=== PATIENT | female | born 1985 | race Caucasian/White ===

== ENCOUNTER 2021-04-21 10:42 | Outpatient (CLI) | payer BC, SELFPAY ==
[2021-04-21 11:07] LABS: Hematocrit 39.6 % (37.0-47.0); Hemoglobin 12.8 g/dL (12.0-15.0)
== END 2021-04-21 10:43 | disposition home or self-care (01) ==
PROVIDERS: Visit Provider Obstetrics & Gynecology
DX: R10.2 Pelvic and perineal pain (principal); Z01.818 Encounter for other preprocedural examination
CPT/HCPCS: 36415; 85014; 85018; 86850; 86900; 86901

== ENCOUNTER 2021-04-24 02:56 | Day surgery (SDC) | payer BC, SELFPAY ==
[2021-04-20 13:44] VITALS: BMI 35.2
--- NOTE | 2021-04-23 07:48 | PM.IMHP ---
H&P: HPI History of Present Illness Date/Time: 04/23/21 07:48 this is a 35-year-old 1 para 1 admitted for laparoscopy hysteroscopy dilatation and curettage secondary to pelvic pain and heavy bleeding. She has complained of pelvic pain discomfort dyspareunia and bleeding. Ultrasound shows thickened endometrium and a mildly enlarged uterus. There is a complex left ovarian cyst with free fluid and she has a family history of endometriosis. Risks and benefits of these procedures were reviewed in great detail. She received the [employer] handout entitled laparoscopy, hysteroscopy, dilatation and curettage respectively. Chief Complaint: pelvic pain/ left ovarian cyst/ heavy bleeding Review of Systems Review of Systems: All systems reviewed & are unremarkable except as noted in HPI and below [facility] Social History Social History Smoking packs per day: 0.5 Smoking cigarettes per day: 10.0 Years smoked: 20 Smoking pack-years: 10.00 Smoking status: Current every day smoker Alcohol use details: 1 PER MONTH Substance use: never Meds Home Medications and Allergies Home Medications Medication Instructions Recorded Confirmed Type levothyroxine 88 mcg PO DAILY 04/20/21 04/20/21 History Allergies Allergy/AdvReac Type Severity Reaction Status Date / Time clarithromycin Allergy Mild Rash Verified 04/20/21 13:43 Exam Const: General: no acute distress Eyes: General: appearance normal, both eyes and all related structures Neck: Neck: supple and no JVD Thyroid: thyroid normal Resp: Effort & Inspection: normal respiratory effort Auscultation: clear to auscultation bilaterally Cardio: Rate: regular rate Rhythm: regular rhythm GI: Inspection: non-distended GI Palp: Yes Soft to palpation, No Tenderness to palpation present (GI) and No Guarding due to palpation present (GI) Auscultation: normal bowel sounds : External Female Exam: normal external appearance Speculum Exam - Vagina: normal appearance of the vagina Speculum Exam - Cervix: normal appearance of the cervix Bimanual exam- vagina & uterus: enlarged and Uterine tenderness Bimanual Exam- Adnexa, other: tender Skin: General skin exam: no rashes or lesions noted Extrem: General: normal to inspection and no edema Psych: Mental Status: mental status grossly normal Affect: normal affect Assessment and Plan Additional Plan Impression: Pelvic pain with bleeding and left ovarian cyst Plan: Laparoscopy /hysteroscopy / dilatation curettage
[2021-04-24] VITALS (9 sets, daily range): BP systolic 109–130; BP diastolic 67–83; PULSE 62–74; RESP 14–18; TEMP 36.3–36.6; O2SAT 96–99; BMI 35.1
--- NOTE | 2021-04-24 06:36 | WPDHPUPDATE1 ---
History and Physical Update Update Date/Time: 04/24/21 06:36 History and Physical has been reviewed, including an updated exam of the patient. There are NO changes in the patient's condition. Risks, benefits, and alternatives have been discussed and questions answered. Patient agrees to proceed with procedure.
--- NOTE | 2021-04-24 12:00 | WPDANESEPPF ---
Anes - Initial Pre Proc Eval Procedure: Operation Date: 04/24/21 13:30 Proposed Procedures p Diagnostic Laparoscopy, Hysteroscopy Dilation and Curettage - Omega Barajas MD Date/Time: 04/24/21 12:00 Surgeon: Omega Barajas MD Pre Op Diagnosis: Pain/irreg excessive bleeding Patient Data Age: 35 Gender: F Height: 1.68 m Weight: 99 kg Allergies Allergy/AdvReac Type Severity Reaction Status Date / Time clarithromycin Allergy Mild Rash Verified 04/24/21 11:51 Home Medications Medication Instructions Recorded Confirmed Type levothyroxine 88 mcg PO DAILY 04/20/21 04/24/21 History hydrocodone-acetaminophen 1 tablet PO Q4H PRN #30 tablet 04/24/21 Rx Patient hx anesthesia problems: none Family hx anesthesia problems: none [facility] Past Medical History Medical History Hypothyroidism Obesity Smoker Surgical History Surgical History (Updated 04/24/21 @ 12:05 by Omega John MD) History of section Social History Social History Smoking packs per day: 0.5 Smoking cigarettes per day: 10.0 Years smoked: 20 Smoking pack-years: 10.00 Smoking status: Current every day smoker Alcohol use details: 1 PER MONTH Substance use: never Living arrangements: with family Anes - Eval Final PreProcedure Day of Procedure 04/24/21 12:00 Patient weight: obese Heart: regular rate and rhythm Lungs: clear to auscultation Airway: Mallampati scale class II Neurological: alert and oriented Last oral intake: >/= 8 hours ASA classification: II Emergent: no Anesthetic plan: proceed Anesthesia type and monitoring: general ETT and standard monitoring Informed Consent: The patient's anesthetic plan and its attendant risks and benefits were discussed with the patient/family/POA. Questions were solicited and answers provided to the satisfaction of the patient/family/POA.
[2021-04-24] MEDS: LACTATED RINGERS 1,000 ML 30 ML IV CONT ×2 (12:08→14:04)
[2021-04-24] MEDS: KETOROLAC 15 MG/ML VIAL (*BKC) IV PUSH (12:14)
[2021-04-24] MEDS: ACETAMINOPHEN 500 MG TABLET 1000 MG PO (12:14)
--- NOTE | 2021-04-24 12:21 | SUR.PREOP ---
1130; PT TEARFUL, STATES SHE IS VERY ANXIOUS
--- NOTE | 2021-04-24 13:22 | P.OP_ITS ---
Procedure Note - Detailed Date of Procedure 04/24/21 Pre-op Diagnosis Pain/irreg excessive bleeding Post-op Diagnosis other (Pelvic adhesions / endometriosis /right ovarian cyst) Procedure Performed laparoscopy/ destruction of right ovarian cyst / destruction of endometriosis / lysis of adhesions /hysteroscopy / dilatation and curettage Surgeon Omega Barajas MD Anesthesia general Indications cyst 35-year-old female with pelvic pain and excessive heavy bleeding Findings multiple adhesions were seen from the omentum to the anterior abdominal. The uterus was markedly adherent to the anterior abdominal. Large right ovarian cyst benign in nature was seen. Endometriosis on the right ovary was seen. Adhesions in the posterior cul-de-sac. On hysteroscopy the uterus sounded to 8cm. Thick irregular endometrial tissue was seen Description of Procedure the patient was prepped draped in normal sterile fashion placed in dorsal lithotomy position. Excellent endotracheal anesthesia weighted speculum placed in posterior [id number] of vagina. The anterior lip of the cervix grasped a single-tooth tenaculum and the Alberto's cannula inserted the cervix. This was attached to the single-tooth to be used later for uterine manipulation the bladder was drained of clear urine. Weighted speculum was removed and gloves were changed. An infraumbilical incision made in the Veress needle passed in the abdomen. The abdomen filled with CO2 gas [id number]. The 5mm trocar advanced under visualization assuring injury. The patient placed in Trendelenburg and a suprapubic incision made. The 5mm trocar was advanced under direct visualization assuring no injury. Multiple adhesions were seen. Using Endo Elaine cautery this was sharply dissected. The uterus was markedly adherent anterior to the abdominal wall and sharp dissection was used to loosen this. There were also adhesions posteriorly in the cul-de-sac and these were sharply dissected a moderate size right ovarian cyst was seen and this was opened in linear fashion and drained clear fluid. An area of powder burn and endometriosis was seen on the right ovary and this was cauterized at 35 w per 2nd monopolar cautery. Irrigation then undertaken until clear. The remainder of the pelvis appeared within normal limits. Irrigation was undertaken and the lower site removed. The gas removed from the abdomen and then the upper site removed. The incisions closed with 4 O Monocryl and glue. Attention was turned to the hysteroscopic portion of procedure. The uterus sounded 8cm. Serial dilatation with fragmented dilators performed passage of 5mm visualizing hysteroscope. Normal saline was used as visualizing medium. Thick irregular endometrial tissue was seen. Each fallopian tube os could be seen. No other abnormalities were seen. The uterus was scraped over the entire 360? until a good grating sound was heard. When the scraping could return more tissue the procedure was terminated the patient was awakened and went to rec overy in satisfactory condition. All sponge, needle, instrument counts were correct. There were no immediate complications Estimated Blood Loss 5 Drains No Packing No Pathology yes Complications No immediate complications Condition stable Disposition PACU
[2021-04-24] MEDS: fentaNYL CITRATE INJ (*CRX) 100 MCG/2 ML VIAL 25 MCG IV PUSH ×4 (13:46→14:00)
== END 2021-04-24 15:40 | disposition home or self-care (01) ==
PROVIDERS: Visit Provider Obstetrics & Gynecology
PROC: 0UDB8ZZ Extraction of Endometrium, Via Natural or Artificial Opening Endoscopic (ICD-10-PCS; CPT 58558; principal; 2021-04-24 13:30)
DX: R10.2 Pelvic and perineal pain (principal); N93.9 Abnormal uterine and vaginal bleeding, unspecified; N83.201 Unspecified ovarian cyst, right side; N73.6 Female pelvic peritoneal adhesions (postinfective); N80.1 Endometriosis of ovary; E03.9 Hypothyroidism, unspecified; E66.9 Obesity, unspecified; Z68.35 Body mass index [BMI] 35.0-35.9, adult; F17.210 Nicotine dependence, cigarettes, uncomplicated
CPT/HCPCS: 58662; 58558; 36415; 85014; 85018; 86850; 86900; 86901; 88305; A9270; J0330; J1100; J1885; J2250; J2405; J2704; J3010; J7030; J7120

== ENCOUNTER 2023-01-03 09:38 | Emergency (ER) | payer BC, SELFPAY ==
[2023-01-03 09:57] VITALS: BP 118/74; PULSE 84; RESP 18; TEMP 36.4; O2SAT 100
--- NOTE | 2023-01-03 10:19 | ED.GENADULT ---
HPI - General Adult General Chief complaint: Skin/Abscess/Foreign Body <Dinh Raines PA-C - Last Filed: 01/03/23 14:07> Stated complaint: abcess on Left inner thigh <JOSÉ MANUEL Pinzon Last Filed: 01/03/23 14:07> Time Seen by Provider: 01/03/23 10:10 <Dinh Raines PA-C - Last Filed: 01/03/23 14:07> Source: patient <JOSÉ MANUEL Pinzon Last Filed: 01/03/23 14:07> Mode of arrival: ambulatory <JOSÉ MANUEL Pinzon Last Filed: 01/03/23 14:07> Limitations: no limitations <JOSÉ MANUEL Pinzon Last Filed: 01/03/23 14:07> History of Present Illness HPI narrative: This is a 37-year-old female presents to the ED with chief complaint of left inner thigh infection x3 days. Patient states she was at urgent care 2 days ago and was given a prescription for Bactrim. She is returning today because the pain is worse and there is spreading erythema. She states that they did not drain the abscess. Reports the area is erythematous, swollen and hard. Denies fevers, chills, nausea, vomiting. <Dinh Raines PA-C - Last Filed: 01/03/23 14:07> Related Data Home medications: Home Medications Medication Instructions Recorded Confirmed levothyroxine 88 mcg tablet 88 mcg PO DAILY 04/20/21 04/24/21 <JOSÉ MANUEL Pinzon Last Filed: 01/03/23 14:07> Allergies/adverse reactions: Allergies Allergy/AdvReac Type Severity Reaction Status Date / Time clarithromycin Allergy Mild Rash Verified 01/03/23 10:05 <JOSÉ MANUEL Pinzon Last Filed: 01/03/23 14:07> Review of Systems Review of Systems: CONSTITUTIONAL: Denies fever, chills, or sweats. EYES: Denies visual changes, redness, or discharge. ENT: Denies rhinorrhea, congestion, sore throat, or otalgia. CARDIOVASCULAR: Denies chest pain, palpitations, or edema. RESPIRATORY: Denies cough or dyspnea. GASTROINTESTINAL: Denies abdominal pain, nausea, vomiting, or diarrhea. GENITOURINARY: Denies dysuria or hematuria. SKIN: See HPI MUSCULOSKELETAL: Denies back pain, joint pain, or myalgia. NEUROLOGIC: Denies headache, numbness, dizziness, or weakness. PSYCHIATRIC: Denies anxiety or depression. <Dinh Raines PA-C - Last Filed: 01/03/23 14:07> [facility] Past Medical History Medical History: Medical History Hypothyroidism Obesity Smoker <Dinh Raines PA-C - Last Filed: 01/03/23 14:07> Surgical History Surgical History: Surgical History (Updated 04/24/21 @ 12:05 by Omega John MD) History of section <Dinh Raines PA-C - Last Filed: 01/03/23 14:07> Social History Social History: Social History Smoking packs per day: 0.5 Smoking cigarettes per day: 10.0 Years smoked: 20 Smoking pack-years: 10.00 Smoking status: Current every day smoker Alcohol use details: 1 PER MONTH Substance use: never Living arrangements: with family <Dinh Rianes PA-C - Last Filed: 01/03/23 14:07> Exam Narrative: GENERAL: Well-appearing, well-nourished, and in no acute distress. HEAD: Normocephalic, atraumatic. EYES: PERRLA and EOMI. ENT: Nares clear, no rhinorrhea or epistaxis. Mucous membranes moist. Oropharynx without tonsillar hypertrophy exudate or other lesions. NECK: Supple. No adenopathy or masses. CHEST: No respiratory distress. Clear to auscultation. No wheezes rales or rhonchi HEART: Regular rate and rhythm. No murmur heard. Normal peripheral pulses. ABDOMEN: Soft, nontender, nondistended, normal active bowel sounds. EXTREMITIES: Normal range of motion. No edema. SKIN: There is a 4 x 6 cm area of induration to the left proximal anterolateral medial thigh. No erythema surrounds the lesion throughout the upper half of the anterior thigh. The area is very tender over the induration. NEURO: Alert and oriented x3. No focal deficits. PSYCH: Normal mood and affect. <Dinh Raines PA-C - Last Filed: 01/03/23 14:07> Course [employer]CH[employer]IC/DARLEEN Owen
[2023-01-03 10:47] LABS: Basophils Absolute Auto 0.1 K/mm3 (0.0-0.1); Basophils Percent Auto 0.4 % (0.2-1.2); Eosinophils Absolute Auto 0.2 K/mm3 (0-0.3); Eosinophils Percent Auto 1.8 % (0-4.4); Hemoglobin 11.2 g/dL (12.0-15.0); Immature Granulocyte Absolute 0.07 K/mm3 (0.00-0.031); Immature Granulocyte Percent A 0.6 % (0-0.5); Lymphocytes Absolute Auto 2.96 K/mm3 (0.9-3.2); Lymphocytes Percent Auto 23.8 % (18.3-44.2); Mean Corpuscular HGB Conc 31.1 g/dl (32-36); Mean Corpuscular Volume 73.9 fl (80-100); Mean Platelet Volume 9.5 fl (7.4-10.4); Monocytes Absolute Auto 1.1 K/mm3 (0.1-0.6); Neutrophils Percent Auto 64.4 % (45.5-73.1); Platelet Count Result 276 k/mm3 (150-375); Red Blood Count 4.87 M/mm3 (4.2-5.4); Red Cell Distribution Width 17.4 % (11.5-14.5); White Blood Count 12.4 K/mm3 (4.5-10.0)
[2023-01-03 11:03] LABS: Alanine Aminotransferase 26 U/L (6-35); Albumin Level 4.5 g/dL (3.5-5.1); Alkaline Phosphatase 98 U/L (38-126); Anion Gap 6 mmol/L (8-16); Aspartate Amino Transferase 25 U/L (14-36); Blood Urea Nitrogen 8 mg/dL (7-17); Calcium 9.5 mg/dL (8.4-10.2); Carbon Dioxide 24 mmol/L (22-30); Chloride 107 mmol/L (98-107); Estimated CRCL calculation 88 ml/min; Estimated Glomerular Filt Rate > 60; Glucose 83 mg/dL (65-110); Potassium 4.6 mmol/L (3.4-5.0); Sodium 137 mmol/L (137-145)
[2023-01-03 11:30] LABS: CRP 5.1 mg/dL (<1.0)
[2023-01-03 12:03] VITALS: BP 116/71; PULSE 73; RESP 16; O2SAT 99
== END 2023-01-03 12:06 | disposition home or self-care (01) ==
PROVIDERS: Emergency Provider Physician Assistant
DX: L02.416 Cutaneous abscess of left lower limb (principal); E03.9 Hypothyroidism, unspecified; E66.9 Obesity, unspecified; Z68.34 Body mass index [BMI] 34.0-34.9, adult; F17.210 Nicotine dependence, cigarettes, uncomplicated
CPT/HCPCS: 10060; 36415; 80053; 85025; 86140; 99283

== ENCOUNTER 2023-01-05 09:47 | Emergency (ER) | payer BC, SELFPAY ==
--- NOTE | ~2023-01-05 | US_ITS ---
Duplex Sonography of the left extremity: Indication: Swelling Findings: Sagittal and transverse B-mode images as well as color-flow imaging were performed on the l eft femoral and popliteal veins. B-mode examination was done without and with compression in the tra nsverse plane. There is good visualization of the common femoral, proximal profunda femoral, superfi cial femoral, greater saphenous, and popliteal veins. Normal flow was seen on color-flow imaging. No rmal compressibility was demonstrated. Visualized left calf veins are also patent. Impression: No evidence of deep vein thrombosis involving the left lower extremity. Reviewed, dictated and finalized at location M. Impression: No evidence of deep vein thrombosis involving the left lower extremity.
[2023-01-05 09:48] VITALS: BP 127/73; PULSE 80; RESP 12; TEMP 36.2; O2SAT 100
[2023-01-05 10:51] LABS: Basophils Percent Auto 0.4 % (0.2-1.2); Eosinophils Absolute Auto 0.3 K/mm3 (0-0.3); Eosinophils Percent Auto 3.3 % (0-4.4); Hemoglobin 10.4 g/dL (12.0-15.0); Immature Granulocyte Absolute 0.05 K/mm3 (0.00-0.031); Immature Granulocyte Percent A 0.7 % (0-0.5); Lymphocytes Absolute Auto 2.61 K/mm3 (0.9-3.2); Mean Corpuscular HGB Conc 30.6 g/dl (32-36); Mean Corpuscular Hemoglobin 23.6 pg (26-34); Mean Corpuscular Volume 77.1 fl (80-100); Mean Platelet Volume 9.2 fl (7.4-10.4); Monocytes Absolute Auto 0.6 K/mm3 (0.1-0.6); Monocytes Percent Auto 7.4 % (2.6-8.5); Neutrophils Absolute Auto 4.2 K/mm3 (1.3-6.7); Neutrophils Percent Auto 54.2 % (45.5-73.1); Platelet Count Result 279 k/mm3 (150-375); Red Blood Count 4.41 M/mm3 (4.2-5.4); Red Cell Distribution Width 17.4 % (11.5-14.5); White Blood Count 7.7 K/mm3 (4.5-10.0)
[2023-01-05 11:06] LABS: Anion Gap 7 mmol/L (8-16); Blood Urea Nitrogen 10 mg/dL (7-17); Calcium 8.8 mg/dL (8.4-10.2); Carbon Dioxide 23 mmol/L (22-30); Chloride 108 mmol/L (98-107); Estimated CRCL calculation 114 ml/min; Estimated Glomerular Filt Rate > 60; Glucose 104 mg/dL (65-110); Potassium 4.3 mmol/L (3.4-5.0); Sodium 138 mmol/L (137-145)
--- NOTE | 2023-01-05 11:11 | PC.NURSE ---
Report received from Benita PORTER including history and physical and plan of care
--- NOTE | 2023-01-05 13:09 | ED.SKABFB ---
HPI - Skin/Abscess/Foreign Bdy General Chief complaint: Skin/Abscess/Foreign Body Stated complaint: absess left leg Time Seen by Provider: 01/05/23 10:22 History of Present Illness HPI narrative: Patient is a 37-year-old female who presents ER with infection to the left leg. Was seen here 2 days ago and had I&D. Patient was then prescribed clindamycin. She reports that the redness has decreased and her pain is decreased. She is able to ambulate better than she used to previously. She reports she feels like her leg is a bit more swollen however which has her concerned. The wound still continues to drain. No fevers or chills or sweats. No chest pain or shortness of breath. Related Data Home Medications Medication Instructions Recorded Confirmed levothyroxine 88 mcg tablet 88 mcg PO DAILY 04/20/21 04/24/21 Allergies Allergy/AdvReac Type Severity Reaction Status Date / Time clarithromycin Allergy Mild Rash Verified 01/05/23 10:37 Review of Systems Review of Systems: All systems reviewed & are unremarkable except as noted in HPI and below Constitutional: Constitutional: Denies chills, Denies fatigue and Denies fever(s) Cardiovascular: Cardiovascular: Denies chest pain, Denies rapid heart rate and Denies radiating jaw, neck or arm pain Gastrointestinal: Gastrointestinal: Denies abdominal pain, Denies nausea and Denies vomiting Integumentary/Breasts: Skin/Breast: Reports erythema and Denies skin ulcer Comments: Abscess PMFSH Past Medical History Medical History Hypothyroidism Obesity Smoker Surgical History Surgical History (Updated 04/24/21 @ 12:05 by Omega John MD) History of section Social History Social History Smoking packs per day: 0.5 Smoking cigarettes per day: 10.0 Years smoked: 20 Smoking pack-years: 10.00 Smoking status: Current every day smoker Alcohol use details: 1 PER MONTH Substance use: never Living arrangements: with family Exam Narrative: GENERAL: Well-appearing, well-nourished, and in no acute distress. HEAD: Normocephalic, atraumatic. CHEST: Clear to auscultation. No respiratory distress. HEART: Regular rate and rhythm. Normal peripheral pulses. EXTREMITIES: Normal range of motion. No edema. SKIN: Warm, dry. Draining abscess left proximal thigh. There is surrounding induration related to cellulitis. Leg has a outline from where the previous erythema had extended. Discoloration does extend slightly beyond this demarcation however it is no longer intensely red like her previous cell phone photos. NEURO: Alert and oriented x3. PSYCH: Normal mood and affect. Course Course Emergency Course: Patient had her abscessed area reopened with some mild purulence evacuated. Ultrasound without DVT. Suspect patient's cellulitis and abscess are healing appropriately as she has decreased erythema and is ambulating better. Vital Signs Vital signs: Vital Signs Temperature 97.2 F L 01/05/23 09:48 Pulse Rate 80 01/05/23 09:48 Respiratory Rate 12 01/05/23 09:48 Blood Pressure 127/73 01/05/23 09:48 Pulse Oximetry 100 01/05/23 09:48 Oxygen Delivery Room Air 01/05/23 09:48 Temperature 97.2 F L 01/05/23 09:48 Pulse Rate 80 01/05/23 09:48 Respiratory Rate 12 01/05/23 09:48 Blood Pressure 127/73 01/05/23 09:48 Pulse Oximetry 100 01/05/23 09:48 Oxygen Delivery Room Air 01/05/23 09:48 Procedures Abscess I/D thigh: Date of Incision: 01/05/23 Side (if applicable): left Local Anesthetic: lidocaine 2% and with epi Amount of anesthesia used (mL): 3 Technique: incised with #11 blade Packing used?: none I&D Results: Pus and Blood MDM - Skin/Abscess/Foreign Bdy Lab Data 01/05/23 10:45 01/05/23 10:45 Labs: Lab Results 01/05/23 01/05/23 Range/Units 10:45 10:45 WBC 7.7 (4.5-
== END 2023-01-05 13:36 | disposition home or self-care (01) ==
PROVIDERS: Emergency Provider Emergency Medicine
DX: L02.416 Cutaneous abscess of left lower limb (principal); E03.9 Hypothyroidism, unspecified; E66.9 Obesity, unspecified; Z68.37 Body mass index [BMI] 37.0-37.9, adult; F17.210 Nicotine dependence, cigarettes, uncomplicated
CPT/HCPCS: 10060; 36415; 80048; 85025; 93971; 99283; 99284

== ENCOUNTER 2023-04-09 13:09 | Emergency (ER) | payer BC, SELFPAY ==
[2023-04-09 13:10] VITALS: BP 121/68; PULSE 80; RESP 18; TEMP 36.6; O2SAT 100
[2023-04-09] MEDS: LIDO 2%/EPINEPHRINE 1:100,000 20 ML VIAL (13:58)
--- NOTE | 2023-04-09 14:06 | ED.GENADULT ---
HPI - General Adult General Chief complaint: Skin/Abscess/Foreign Body Stated complaint: abscess to lower abdomen/pubic symphysis Time Seen by Provider: 04/09/23 13:17 History of Present Illness HPI narrative: 37-year-old female present to the emergency department for evaluation for abdominal wall abscess. Patient has history of at bedtime and has been on Bactrim and clinda multiple times. Patient has not had follow-up with dermatology. Related Data Home Medications Medication Instructions Recorded Confirmed levothyroxine 88 mcg tablet 88 mcg PO DAILY 04/20/21 04/24/21 Allergies Allergy/AdvReac Type Severity Reaction Status Date / Time clarithromycin Allergy Mild Rash Verified 04/09/23 13:10 Review of Systems Review of Systems: All systems reviewed & are unremarkable except as noted in HPI and below PMFSH Past Medical History Medical History Hypothyroidism Obesity Smoker Surgical History Surgical History (Updated 04/24/21 @ 12:05 by Omega John MD) History of section Social History Social History Smoking packs per day: 0.5 Smoking cigarettes per day: 10.0 Years smoked: 20 Smoking pack-years: 10.00 Smoking status: Current every day smoker Alcohol use details: 1 PER MONTH Substance use: never Living arrangements: with family Exam Narrative: APPEARANCE: Well appearing, no pain, no distress, well-nourished. HEAD: normocephalic, atraumatic. EYES: PERRLA/EOMI, conjunctivae clear. NOSE: Normal no drainage EARS:TMS clear with good light reflex. THROAT: Pharynx clear, no exudate. NECK: Supple. No adenopathy, no masses. RESPIRATORY: Airway patent, respirations nonlabored. Clear to auscultation bilaterally, no rales, rhonchi, wheezing. CARDIOVASCULAR: Regular rate and rhythm without murmurs rubs or gallops. ABDOMINAL: Soft, nontender, nondistended, normal bowel sounds MUSCULOSKELETAL: Moves all extremities. Strength/ROM intact, No edema, No calf tenderness. NEURO: Alert. Cranial nerves II through XII intact. Good gait. Good coordination SKIN: Midline abdominal tenderness. Bedside ultrasound did confirm an abscess and this was anesthetized and drained as described in the procedure note. PSYCHIATRIC: Normal affect/mood. Course Course Emergency Course: 37-year-old female presented ED for evaluation of abdominal wall abscess. This was anesthetized and drained as detailed in the procedure note. Patient did feel improved with treatment. Wound culture was ordered. Patient was started on Bactrim. Patient was provided follow-up with dermatology. All questions and concerns were addressed and patient was comfortable to plan for discharge and close follow-up. Vital Signs Vital signs: Vital Signs Temperature 97.8 F 04/09/23 13:10 Pulse Rate 80 04/09/23 13:10 Respiratory Rate 18 04/09/23 13:10 Blood Pressure 121/68 04/09/23 13:10 Pulse Oximetry 100 04/09/23 13:10 Oxygen Delivery Room Air 04/09/23 13:10 Temperature 97.8 F 04/09/23 13:10 Pulse Rate 80 04/09/23 13:10 Respiratory Rate 18 04/09/23 13:10 Blood Pressure 121/68 04/09/23 13:10 Pulse Oximetry 100 04/09/23 13:10 Oxygen Delivery Room Air 04/09/23 13:10 Procedures Abscess I/D abdomen: Date of Incision: 04/09/23 Time of Incision: 14:08 Side (if applicable): right (Midline) Local Anesthetic: lidocaine 1% and with epi Amount of anesthesia used (mL): 3 Technique: incised with #11 blade and probed loculations Amount of fluid expressed (mL): 10 Irrigation: Yes Packing used?: iodoform I&D Results: Pus and Blood Abcess I&D Additional Comments: Patient felt improved after abscess I&D. Medical Decision Making Vital Signs Vital Signs: Vital Signs Temperature 97.8 F 04/09/23 13:10 Pulse Rate 80 04/09/23 13:10 Respiratory Rate 18 04/09/23
[2023-04-09] MEDS: SULFAMETHOXAZOLE/TRIMETHOPRIM 800/160 MG DS TABLET 1 TAB PO (14:11)
== END 2023-04-09 14:29 | disposition home or self-care (01) ==
PROVIDERS: Emergency Provider Emergency Medicine
DX: L02.211 Cutaneous abscess of abdominal wall (principal); E03.9 Hypothyroidism, unspecified; E66.9 Obesity, unspecified; Z68.33 Body mass index [BMI] 33.0-33.9, adult; F17.210 Nicotine dependence, cigarettes, uncomplicated
CPT/HCPCS: 10061; 87070; 87205; 99283; A9270

== ENCOUNTER 2023-04-24 09:25 | Emergency (ER) | payer BC, SELFPAY ==
[2023-04-24 09:27] VITALS: BP 138/86; PULSE 75; RESP 18; TEMP 36.1; O2SAT 100
--- NOTE | 2023-04-24 09:53 | ED.GENADULT ---
HPI - General Adult General Chief complaint: Skin/Abscess/Foreign Body <JOSÉ MANUEL Pinzon Last Filed: 04/24/23 13:32> Stated complaint: abcess <JOSÉ MANUEL Pinzon Last Filed: 04/24/23 13:32> Time Seen by Provider: 04/24/23 09:39 <JOSÉ MANUEL Pinzon Last Filed: 04/24/23 13:32> Source: patient <JOSÉ MANUEL Pinzon Last Filed: 04/24/23 13:32> Mode of arrival: ambulatory <JOSÉ MANUEL Pinzon Last Filed: 04/24/23 13:32> Limitations: no limitations <JOSÉ MANUEL Pinzon Last Filed: 04/24/23 13:32> History of Present Illness HPI narrative: This is a 37-year-old female who presents to the ED with chief complaint of suprapubic skin lesion beginning several weeks ago and worse today. Patient states that she has been seen for this a couple of times in the past few weeks and had the area drained. She states that she has had abscesses in this region near her past scar. She states she has a history of hidradenitis suppurativa and feels that this is the same. She reports that she was put on Bactrim during her last visit and took all 7 days which seem to help. Denies fevers, chills, nausea, vomiting. Per chart review: I saw this patient in December 2022 and treated cellulitis and abscess of the left inner thigh. It was drained at that time. She also improved greatly with clindamycin. <JOSÉ MANUEL Pinzon Last Filed: 04/24/23 13:32> Related Data Home medications: Home Medications Medication Instructions Recorded Confirmed levothyroxine 88 mcg tablet 88 mcg PO DAILY 04/20/21 04/24/21 <JOSÉ MANUEL Pinzon Last Filed: 04/24/23 13:32> Allergies/adverse reactions: Allergies Allergy/AdvReac Type Severity Reaction Status Date / Time clarithromycin Allergy Mild Rash Verified 04/24/23 09:32 <JOSÉ MANUEL Pinzon Last Filed: 04/24/23 13:32> Review of Systems Review of Systems: All systems as dictated in HPI <Dinh Raines PA-C - Last Filed: 04/24/23 13:32> PMFSH Past Medical History Medical History: Medical History Hypothyroidism Obesity Smoker <JOSÉ MANUEL Pinzon Last Filed: 04/24/23 13:32> Surgical History Surgical History: Surgical History (Updated 04/24/21 @ 12:05 by Omega John MD) History of section <JOSÉ MANUEL Pinzon Last Filed: 04/24/23 13:32> Social History Social History: Social History Smoking packs per day: 0.5 Smoking cigarettes per day: 10.0 Years smoked: 20 Smoking pack-years: 10.00 Smoking status: Current every day smoker Alcohol use details: 1 PER MONTH Substance use: never Living arrangements: with family <JOSÉ MANUEL Pinzon Last Filed: 04/24/23 13:32> Exam Narrative: GENERAL: Well-appearing, well-nourished, and in no acute distress. HEAD: Normocephalic, atraumatic. EYES: PERRLA and EOMI. ENT: Nares clear, no rhinorrhea or epistaxis. Mucous membranes moist. Oropharynx without tonsillar hypertrophy exudate or other lesions. NECK: Supple. No adenopathy or masses. CHEST: No respiratory distress. Clear to auscultation. No wheezes rales or rhonchi HEART: Regular rate and rhythm. No murmur heard. Normal peripheral pulses. ABDOMEN: Soft, nontender, nondistended, normal active bowel sounds. MSK: Normal range of motion. No edema. SKIN: There is swelling and erythema to the suprapubic region. Several scattered lesions. No purulence or drainage. Mild induration with no fluctuance. Warm, dry, no rash. NEURO: Alert and oriented x3. No focal deficits. PSYCH: Normal mood and affect. <JOSÉ MANUEL Pinzon Last Filed: 04/24/23 13:32> Course VEHICLE GLASS TECHNICIAN/PA Physician Supervision For this patient encounter, I reviewed the VEHICLE GLASS TECHNICIAN or PA documentation, treatment plan, and I was responsible for the medical decision making; and I had [id number] time with this patient. <Hernandez Montez MD - Last Filed:
[2023-04-24 10:57] VITALS: BP 136/85; PULSE 88; RESP 15; O2SAT 99
== END 2023-04-24 10:58 | disposition home or self-care (01) ==
PROVIDERS: Emergency Provider Physician Assistant
DX: L02.211 Cutaneous abscess of abdominal wall (principal); E03.9 Hypothyroidism, unspecified; E66.9 Obesity, unspecified; Z68.32 Body mass index [BMI] 32.0-32.9, adult; F17.210 Nicotine dependence, cigarettes, uncomplicated
CPT/HCPCS: 10061; 81025; 99283

== ENCOUNTER 2024-04-30 16:34 | Emergency (ER) | payer BC, SELFPAY ==
--- NOTE | ~2024-04-30 | US_ITS ---
EXAMINATION: US pelvic complete DATE: 04/30/2024 19:33 INDICATION: abdominal pain, hx PCOS TECHNIQUE: Multiple transabdominal and endovaginal sonographic images of the pelvis were obtained. COMPARISON: None. FINDINGS: Uterus: 9.8 x 5.2 x 5.4 cm. Endometrial complex measures 8 mm. Right Ovary: 3.5 x 2.4 x 2.2 cm. The right ovary is midline, posterior to the uterus. Vascular flow i s not definitively identified. Left Ovary: 3.6 x 3.0 x 2.3 cm. Vascular flow is present. There is no free fluid in the pelvis. IMPRESSION: Midline, posterior right ovary without definite identification of vascular flow. This may be due to t orsion or suboptimal flow visualization due to ovarian position. Ovarian edema/enlargement not identi fied, which would classically be associated with acute torsion. Reviewed, dictated and finalized at [facility]. IMPRESSION: Midline, posterior right ovary without definite identification of vascular flow . This may be due to torsion or suboptimal flow visualization due to ovarian po sition. Ovarian edema/enlargement not identified, which would classically be as sociated with acute torsion.
--- NOTE | ~2024-04-30 | CT_ITS ---
EXAMINATION: CT abdomen pelvis w con DATE: 04/30/2024 20:55 INDICATION: abdominal pain TECHNIQUE: Computed tomography (CT) of the abdomen and pelvis was performed with 100 mL Omnipaque-350 intravenous contrast. Automated exposure control and iterative reconstruction technique were employe d. The dose-length product was 1298.23 mGy-cm. COMPARISON: Ultrasound pelvis, same date; CT abdomen pelvis 06/26/2018. FINDINGS: Lower thorax: Unremarkable Liver: Normal. Biliary/Gallbladder: Cholelithiasis, without inflammatory change. No bile duct dilation. Pancreas: No mass or duct dilation. Spleen: Normal. Adrenals:No mass. Kidneys: No suspicious mass, obstructing stone, or hydronephrosis. GI tract: No small or large bowel dilation. Normal appendix. Mesentery/Peritoneum: No ascites, mass, or free air. Retroperitoneum: No mass. Pelvis: Pelvic organs are within normal limits. Soft Tissues: Soft tissues and body wall unremarkable. Bones: No acute osseous finding. Bilateral L5 pars defects. IMPRESSION: No acute abdominopelvic process detected. Reviewed, dictated and finalized at location K.
[2024-04-30 16:59] VITALS: BP 121/78; PULSE 81; RESP 15; TEMP 36.5; O2SAT 99
--- NOTE | 2024-04-30 18:44 | ED.ABDPAIN ---
HPI - Abdominal Pain General Chief Complaint: Abdominal Pain <Elaina Murphy APRN - Last Filed: 05/02/24 17:05> Stated Complaint: abdominal pain <Elaina Murphy APRN - Last Filed: 05/02/24 17:05> Time Seen by Provider: 04/30/24 18:44 <Elaina Murphy APRN - Last Filed: 05/02/24 17:05> Focused HPI: Pt is a 38-year-old female who presents to the ER with abdominal pain. She endorses heartburn and nausea. Pt reports she has a history of endometriosis. She denies vomiting. Pt reports the pain came on suddenly. No one else in pt's family has been sick. Pt took ibuprofen, which helped relieve the pain temporarily. Her pain is mostly in her RLQ but it radiates to her umbilicus. GENERAL: Well-appearing, well-nourished, and in no acute distress. HEAD: Normocephalic, atraumatic. CHEST: Clear to auscultation. ?No respiratory distress. HEART: Regular rate and rhythm.? NEURO: ?Alert and oriented x3. Patient screened in triage and initial orders placed.? ?Additional care and disposition to be based upon?diagnostic testing and treatment. <Elaina Murphy APRN - Last Filed: 05/02/24 17:05> Source: patient <Elaina Murphy APRN - Last Filed: 05/02/24 17:05> Mode of arrival: ambulatory <Elaina Murphy APRN - Last Filed: 05/02/24 17:05> Limitations: no limitations <Elaina Murphy APRN - Last Filed: 05/02/24 17:05> Related Data Home Medications: Home Medications Medication Instructions Recorded Confirmed levothyroxine 88 mcg tablet 88 mcg PO DAILY 04/20/21 04/24/21 <Elaina Murphy APRN - Last Filed: 05/02/24 17:05> Allergies/Adverse Reactions: Allergies Allergy/AdvReac Type Severity Reaction Status Date / Time clarithromycin Allergy Mild Rash Verified 04/24/23 09:32 <Elaina Murphy APRN - Last Filed: 05/02/24 17:05> Review of Systems Review of Systems: All systems reviewed & are unremarkable except as noted in HPI and below <Salud Cruz MD - Last Filed: 05/11/24 18:25> [facility] Past Medical History Medical History: Medical History Hypothyroidism Obesity Smoker <Elaina Murphy APRN - Last Filed: 05/02/24 17:05> Surgical History Surgical History: Surgical History (Updated 04/24/21 @ 12:05 by Omega John MD) History of section <Elaina Murphy APRN - Last Filed: 05/02/24 17:05> Social History Social History: Social History Smoking packs per day: 0.5 Smoking cigarettes per day: 10.0 Years smoked: 20 Smoking pack-years: 10.00 Smoking status: Current every day smoker Alcohol use details: 1 PER MONTH Substance use: never Living arrangements: with family <Elaina Murphy APRN - Last Filed: 05/02/24 17:05> Exam Narrative: Physical exam: General: smiling, resting comfortably, in no acute distress CV: RRR Pulm: NLR Abd: Soft, no tenderness to palpation <Salud Cruz MD - Last Filed: 05/11/24 18:25> Course Vital Signs Vital signs: Vital Signs Temperature 97.7 F 04/30/24 16:59 Pulse Rate 81 04/30/24 16:59 Respiratory Rate 15 04/30/24 16:59 Blood Pressure 121/78 04/30/24 16:59 Pulse Oximetry 99 04/30/24 16:59 Oxygen Delivery Room Air 04/30/24 16:59 Temperature 97.7 F 04/30/24 16:59 Pulse Rate 76 04/30/24 20:45 Respiratory Rate 18 04/30/24 20:45 Blood Pressure 115/89 04/30/24 20:45 Pulse Oximetry 100 04/30/24 20:45 Oxygen Delivery Room Air 04/30/24 16:59 <Elaina Murphy APRN - Last Filed: 05/02/24 17:05> Vital Signs Temperature 97.7 F 04/30/24 16:59 Pulse Rate 81 04/30/24 16:59 Respiratory Rate 15 04/30/24 16:59 Blood Pressure 121/78 04/30/24 16:59 Pulse Oximetry 99 04/30/24 16:59 Oxygen Delivery Room Air 04/30/24 16:59 Temperature 97.7 F 04/30/24 16:59 Pulse Rate 76 04/30/24 20:45 Respiratory Ra
[2024-04-30] MEDS: HYDROcodone/acetaminophen (*CRX) 5-325 MG TABLET 1 TAB PO (19:36)
[2024-04-30 19:44] LABS: BEDSIDEPREGUCG Negative
[2024-04-30 19:51] LABS: Basophils Absolute Auto 0.1 K/mm3 (0.0-0.1); Basophils Percent Auto 0.5 % (0.2-1.2); Eosinophils Absolute Auto 0.2 K/mm3 (0-0.3); Eosinophils Percent Auto 1.9 % (0-4.4); Hematocrit 35.2 % (37.0-47.0); Hemoglobin 10.8 g/dL (12.0-15.0); Immature Granulocyte Absolute 0.04 K/mm3 (0.00-0.031); Immature Granulocyte Percent A 0.4 % (0-0.5); Lymphocytes Absolute Auto 3.52 K/mm3 (0.9-3.2); Lymphocytes Percent Auto 36.8 % (18.3-44.2); Mean Corpuscular HGB Conc 30.7 g/dl (32-36); Mean Corpuscular Volume 71.8 fl (80-100); Mean Platelet Volume 8.9 fl (7.4-10.4); Monocytes Absolute Auto 0.7 K/mm3 (0.1-0.6); Monocytes Percent Auto 7.4 % (2.6-8.5); Neutrophils Absolute Auto 5.1 K/mm3 (1.3-6.7); Platelet Count Result 307 k/mm3 (150-375); Red Cell Distribution Width 18.6 % (11.5-14.5); White Blood Count 9.6 K/mm3 (4.5-10.0)
[2024-04-30 20:04] LABS: Alanine Aminotransferase 37 U/L (6-35); Albumin Level 4.5 g/dL (3.5-5.1); Alkaline Phosphatase 88 U/L (38-126); Anion Gap 9 mmol/L (4-12); Aspartate Amino Transferase 42 U/L (14-36); Bilirubin,Total 0.9 mg/dL (0.2-1.3); Blood Urea Nitrogen 7 mg/dL (7-17); Calcium 8.9 mg/dL (8.4-10.2); Carbon Dioxide 25 mmol/L (22-30); Chloride 104 mmol/L (98-107); Estimated CRCL calculation 89 ml/min; Estimated Glomerular Filt Rate > 60; Glucose 84 mg/dL (65-110); Lipase 77 U/L (23-300); Potassium 4.1 mmol/L (3.4-5.0); Sodium 138 mmol/L (137-145)
[2024-04-30 20:11] LABS: Add Urine Microscopic? NO; Appearance Urine Clear (Clear); Bilirubin Urine Negative (Negative); Blood Urine Negative (Negative); Color Urine Yellow (Yellow); Glucose Urine UA Negative (Negative); Ketones Urine Negative (Negative); Leukocyte Esterase Ur Negative LEU/UL (Negative); Nitrate Urine Negative (Negative); Protein Urine Negative (Negative); Specific Grav Ur 1.017 (1.001-1.035); Urobilinogen Urine 0.2 mg/dL (<2.0); pH Urine 5.5 (5.0-9.0)
[2024-04-30 20:25] LABS: Platelet Estimate Adequate (Adequate)
[2024-04-30 20:26] LABS: Anisocytosis 2+; Microcytosis 1+ (NORMAL); Schistocytes None Seen
[2024-04-30 20:27] LABS: Hypochromasia 1+
[2024-04-30 20:45] VITALS: BP 115/89; PULSE 76; RESP 18; O2SAT 100
[2024-04-30] MEDS: ONDANSETRON INJ 4 MG/2 ML VIAL IV PUSH (22:03)
[2024-04-30] MEDS: FAMOTIDINE 20 MG/2 ML VIAL IV PUSH (22:03)
== END 2024-04-30 22:08 | disposition home or self-care (01) ==
PROVIDERS: Registered Nurse; Emergency Provider Emergency Medicine
DX: R10.31 Right lower quadrant pain (principal); R10.33 Periumbilical pain; R11.2 Nausea with vomiting, unspecified; N80.9 Endometriosis, unspecified; E03.9 Hypothyroidism, unspecified; E66.9 Obesity, unspecified; Z68.34 Body mass index [BMI] 34.0-34.9, adult; F17.210 Nicotine dependence, cigarettes, uncomplicated; R93.89 Abnormal findings on diagnostic imaging of other specified body structures
CPT/HCPCS: 36415; 74177; 76856; 80053; 81003; 81025; 83690; 85025; 96374; 96375; 99284; A9270; J2405; Q9967

== ENCOUNTER 2025-07-19 08:07 | Emergency (ER) | payer BC, SELFPAY ==
--- NOTE | ~2025-07-19 | US_ITS ---
EXAMINATION: US pelvic complete w TV INDICATION: RLQ abdominal/right pelvic pain. Polycystic ovarian syndrome. TECHNIQUE: Multiple transabdominal and transvaginal sonographic images of the pelvis were obtained. COMPARISON: 2023 FINDINGS: Uterus: The uterus appears normal in size, shape, and position.. The endometrium appears normal, with a thickness of 11 mm. There is minimal fluid in the endometrial cavity. Right Ovary: There is a 2.6 cm simple cyst in the right ovary. Vascular flow is present. There is a tubular fluid-filled structure in the right adnexa which may represent hydrosalpinx/pyosalpinx in the appropriate clinical setting. Left Ovary: The left ovary appears normal.. Vascular flow is present. IMPRESSION: Tubular fluid-filled structure in the right adnexa may represent hydrosalpinx or hydrosalpinx. There is a right ovarian cyst without evidence of ovarian torsion. Reviewed, dictated and finalized at location A. IMPRESSION: Tubular fluid-filled structure in the right adnexa may represent hydrosalpinx o r hydrosalpinx. There is a right ovarian cyst without evidence of ovarian torsi on.
--- OUTSIDE RECORDS SUMMARY | 2025-07-19 08:15 | XMS_ITS | Clinical Summary ---
Author Organization [facility] Address [address] [place] [id number] Care Team Providers Care Sandwich Machine Operator Name Role Phone Unavailable Primary Care Provider Unavailabl e Social History Tobacco Use Types Packs/Day Years Used Date Smoking Tobacco: Never Assessed Comments Unknown Sex and Gender Information Value Date Recorded Sex Assigned at Not on file Legal Sex Female 2:23 PM CDT Gender Identity Not on file Sexual Orientation Not on file Plan of Treatment Health Maintenance Due Date Last Done Comments Cervical Cancer Screening Pa p Smear (Age 30 to 64) Every 3 Years 1984 Annual Physical 1987 Hepatitis C 2002 DTaP, Tdap and Td Vaccines ( 1 - Tdap) 2003 Hepatitis B Vaccines (1 of 3 - 19+ 3-dose series) 2003 HPV Vaccines (1 - 3-dose SCD M series) 2011 Cervical Cancer Screening Pa p with HPV Testing (Age 30 to 64) Every 5 Years 2014 Cervical Cancer Screening with HPV 2014 Mammogram Screening 2024 COVID-19 Vaccine (2024-2 6 season) 2025 Influenza Adult (#1) 2025 Hepatitis A Vaccines Aged Out No long er eligible based on patient's age to complete this topic Meningococcal B Vaccine Aged Out No l onger eligible based on patient's age to complete this topic Meningococcal Vaccine Aged Out No mando pepe eligible based on patient's age to complete this topic Pneumococcal Vaccine: Pediat rics (0 to 5 Years) and At-Risk Patients (6 to 49 Years) Aged Out No longer eligible b ased on patient's age to complete this topic RSV Immunizations Under 20 Months Aged Out No longer eligible based on patient's age to complete this topic
--- OUTSIDE RECORDS SUMMARY | 2025-07-19 08:15 | XMS_ITS | Clinical Summary ---
Author Organization [facility] Address [address] [place] [address] Care Team Providers Care Candy Feeder Name Role Phone No, Physician Primary Care Provider [phone] Allergies Active Allergy Reactions Criticality Noted Date Comments Cephalexin Other (See comments) Reaction: OTHER REACTION, , Reaction: anxiety attacks, Clarithromycin Other (See comments) Reaction: face, body turned red, , Medications levothyroxine (SYNTHROID, LEVOTHROID) 175 mcg tablet take 1 tablet by oral route every day 90 3 5 Active albuterol HFA (PROVENTIL HFA,VENTOLIN HFA) 90 mcg/actuation inhaler inhale 2 puff by inhalation route every 4 - 6 hours as needed 1 Inhaler 0 6 Active Additional Information Patient not taking.Reported on 07/19/2022 ondansetron (ZOFRAN) 4 mg tabletIndicatio ns:NAUSEA Take 1 tablet (4 mg total) by mouth every 4 (four) hours as needed for nausea or vomiting. 15 tablet 8 Active Additional Information Patient not taking.Reported on 07/19/2022 azithromycin (Zithromax Z-Antoine) 250 mg tablet Take 1 tablet (250 mg total) by mouth daily Take first 2 tablets together, then 1 every day until finished. 6 tablet 2 Active Additional Information Patient not taking.Reported on 07/19/2022 Active Problems Problem Noted Date Diagnosed Date Asymptomatic gallstones 07/02/2018 Overview (07/02/2018): Found on CT abdomen June 2018 Adiposity 02/02/2014 Overview (12/22/2016): Obesity (BMI 30-39.9) Polycystic ovaries 02/02/2014 Overview (12/23/2016): PCOS (polycystic ovarian syndrome) Acquired hypothyroidism 02/02/2014 Overview (12/24/2016): ACQUIRED HYPOTHYROID NEC Emotional stress reaction 02/02/2014 Overview (12/24/2016): STRESS REACT, EMOTIONAL Disease of thyroid gland 02/21/2013 Multinodular goiter 12/18/2012 Overview (12/23/2016): Multiple thyroid nodules Immunizations Immunization Administration Dates Next Due Tdap 10/21/2009 Surgical History Surgery Date Site/Laterality Comments OTHER SURGICAL HISTORY Anxiety: Celexa OTHER SURGICAL HISTORY Hypothyroidism, primary: levothyroxine OTHER SURGICAL HISTORY 2009 JOE II-III of cervix: LEEP OTHER SURGICAL HISTORY 1988 Tonsillitis, ear infections: T&A, ear tubes OTHER SURGICAL HISTORY 2004 : induced OTHER SURGICAL HISTORY 2014 : 29 hr labor IR FINE NEEDLE ASPIRATION W IMAGE GUIDANCE 05/16/2015 N/A Medical History Medical History Date Comments Anxiety disorder Anxiety Hx Other Medical Hypothyroidism, primary Hx Other Medical Asthma as a chi ld Hx Other Medical PCOS (hirsutism , insulin resistance, heavy menses Hx Other Medical 2009 JOE II-III of c ervix; Outcome: normal paps since Hx Other Medical Goiter Hx Other Medical 1988 Tonsillitis, ea r infections Hx Other Medical 2004 Hx Other Medical 2014 ; Comm ents: GBS (+). Elective IOL with Cervidil and Pitocin. Attempted vacuum assistance not successful for arrest of descent; primary LTCS done.; Outcome: [id number] week 8lb(s) 15 oz Male Family History Medical History Relation Name Comments Hypertension Father Hypertension; Osteoporosis Maternal Grandmother Osteopo rosis; Diabetes Paternal Grandfather Diabete s; Relation Name Status Comments Father Maternal Grandmother Paternal Grandfather Social History Tobacco Use Types Packs/Day Years Used Date Smoking Tobacco: Heavy Smoker Smokeless Tobacco: Never Comments:Smoking History Pac ks/day: 1 Packs Alcohol Use Standard Drinks/Week Comments Yes 0 (1 standard drink = 0.6 oz pur e alcohol) Comments No Sex and Gender Information Value Date Recorded Sex Assigned at Not on file Legal Sex Female 1:30 PM PAINT STOCKMAN Gender Identity Not on file Sexual Orientation Not on file Obstetrics History Last Filed Vital Signs Vital Sign Reading Time Taken Comments Blood Pressure 118/70 07/19/2022 6:55 PM CDT Pulse 95 07/19/2022 6:55 PM CDT Temperature 36.6 C (97.9 F) 07/19/2022 6:55 PM CDT Respiratory Rate 16 07/19/2022 6:55 PM CDT Oxygen Saturation 98% 07/19/2022 6:55 PM CDT Inhaled Oxygen Concentration - - Weight 104.3 kg (230 lb) 07/19/2022 6:55 PM CDT Height 170.2 cm (5' 7) 07/19/2022 6:55 PM CDT Body Mass Index 36.02 07/19/2022 6:55 PM CDT Plan of Treatment Health Maintenance Due Date Last Done Comments Breast Cancer Screening-Mammogram 1984 Cervical Cancer Screening 1984 Depression Screening 1984 Varicella Vaccines (1 of 2 - 13+ 2-dose series) 1997 Hepatitis B Screening 2002 Regular Well Visit/Exam 18-64 2002 Pneumococcal vaccine <65 (1 of 2 - PCV) 2003 HPV Vaccines (1 - 3-dose SCD M series) 2011 DTaP/Tdap/Td Vaccine (6 - Td or Tdap) 10/21/2019 10/21/2009, 03/13/1990, 04/24/1986, Additional history exists Covid-19 Vaccine (2 - 2024-2 6 season) 2025 12/25/2020 Influenza Vaccine (#1) 2025 Hepatitis C Screening Completed 08/22/2014 Procedures Procedure Name Priority Date/Time Associated Diagnosis Comments SERUM HEPATITIS C AB Routine 08/22/2014 6:30 AM PAINT STOCKMAN from Last 3 Months or Most Recently Relevant to Health Maintenance Results * Serum Hepatitis C ab (08/22/2014 6:30 AM PAINT STOCKMAN) HCV ab Negative Negative HISTORICAL RESULTS Serum 08/22/2014 6:30 AM PAINT STOCKMAN Narrative HISTORICAL RESULTS - 08/22/2014 4:40 PM PAINT STOCKMAN #[id number] [facility] DOA, Varicella IgG, and Obstetric Panel Latonya Ocasio MD LAB BLOOD ORDERABLE S Final Result HISTORICAL RESULTS from Last 3 Months or Most Recently Relevant to Health Maintenance Insurance [employer] ACCESS [employer] Care Teams Candy Feeder Relationship Specialty Start Date End Date No, Physician PCP - General 5/14/22
--- OUTSIDE RECORDS SUMMARY | 2025-07-19 08:15 | XMS_ITS | Encounter Summary ---
Author Organization [facility] Address [address] [place] [address] Phone Care Team Providers Care Infection Control Practitioner Name Role Phone Annabelle Robin APRN, LASHA Primary Care P jerome Reason for Visit * Reason Comments Medication Refill Encounter Details Date Type Department Care Team (Late st Contact Info) Description 11/24/2023 Refill [facility] - Primary Care - [place] [address] [place] [address] Dayday Gifford, [place] [address] [place] [address] Medication Refill Social History Tobacco Use Types Packs/Day Years Used Date Smoking Tobacco: Every Day Cigarettes 0.5 15 Smokeless Tobacco: Never Alcohol Use Standard Drinks/Week Comments Yes 0 (1 standard drink = 0.6 oz pur e alcohol) OCCASIONALLY PHQ-2 Answer Date Recorded Total Score - Questions 1-9 0 02/18 Education Answer Date Recorded What is the highest level of school you have completed or the highest degree you have received? Associate degree: academic program 03/01/2023 Sexually Active Control Partners Comments Yes Male Comments No Sex and Gender Information Value Date Recorded Sex Assigned at Not on file Legal Sex Female 10:17 PM CDT Gender Identity Not on file Sexual Orientation Not on file documented as of this encounter Miscellaneous Notes * Telephone Encounter - Emily Tellez RN - 11/24/2023 10:08 AM CST Medication failed the protocol, provider to review and approve the medication order if appropriate. Requested Prescriptions Pending Prescriptions Disp Refills levothyroxine (SYNTHROID) 112 MCG Tablet [Pharmacy Med Name: Levothyroxine Sodium 112 MCG Oral Tablet] 90 Tablet 0 Sig: Take 1 tablet by mouth once daily Thyroid Hormones Protocol Failed - 11/24/2023 10:05 AM Failed - Normal TSH in past 12 months TSH Date Value Ref Range Status 05/25/2023 18.520 (H) 0.300 - 5.000 mIU/L Final Passed - No test in the past 12 months or most recent test was negative Passed - Visit with relevant provider in past 12 months or upcoming 90 days Recent Visits Date Type Provider Dept 03/08/23 Office Visit Annabelle Robin APRN, SUPERVISOR [employer] [facility] Showing recent visits within past 365 days and meeting all other requirements Future Appointments No visits were found meeting these conditions. 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 documented in this encounter Additional Health Concerns Infection Onset Date Last Indicated Resolved Time Respiratory Rule-Out 11/26/2023 11/26/2023 024 10:03 AM UNIT EDUCATOR COVID - 19 11/26/2023 11/26/2023 11/26/2023 10:0 2 AM UNIT EDUCATOR Influenza 11/26/2023 11/26/2023 12/03/2023 12:1 6 AM CDT Assessment Noted Time PHQ-9 Depression Total Score: 0 03/16/20 21 7:00 AM CDT documented as of this encounter Care Teams Infection Control Practitioner Relationship Specialty Start Date End Date Annabelle Robin APRN, SUPER[employer] [address] [place] [address] PCP - General Advanced Practice Nurse 04/28/23 documented as of this encounter
--- OUTSIDE RECORDS SUMMARY | 2025-07-19 08:15 | XMS_ITS | Encounter Summary ---
Author Organization [facility] Address [address] [place] [address] Phone Care Team Providers Care Public Address Announcer Name Role Phone Annabelle Robin APRN, CNP Primary Care P rovider Reason for Visit * Reason Comments Medication Refill Encounter Details Date Type Department Care Team (Late st Contact Info) Description 02/18/2024 Refill [facility] - Primary Care - [place] [address] [place] [phone] Annabelle Robin APRN, CNP [address] [place] [address] Medication Refill Social History Tobacco Use Types [...] encounter Miscellaneous Notes * Telephone Encounter - Annabelle Robin APRN, CNP - 02/22/2024 11:09 AM CDT Refilled. * Telephone Encounter - Emily Tellez RN - 02/22/2024 9:28 AM CDT Medication failed the protocol, provider to review and approve the medication order if appropriate. Requested Prescriptions Pending Prescriptions Disp Refills levothyroxine (SYNTHROID) 112 MCG Tablet [Pharmacy Med Name: Levothyroxine Sodium 112 MCG Oral Tablet] 90 Tablet 0 Sig: Take 1 tablet by mouth once daily Thyroid Hormones Protocol Failed - 02/18/2024 9:31 AM Failed - Normal TSH in past [...] Dept 03/08/23 Office Visit Annabelle Robin APRN, CNP [facility] Showing recent visits within past 365 days and meeting all other requirements Future Appointments No visits were found meeting these conditions. Showing future appointments within next 90 days and meeting all other requirements Passed - No active on record * Telephone Encounter - Emily Tellez RN - 02/22/2024 9:28 AM CDT 3rd attempt to call pt, no answer, LVM for pt to call back. * Telephone Encounter - Curtis Mojica RN - 02/21/2024 8:11 AM CDT Attempted to contact [facility] for yearly appt. No answer, left message. * Telephone Encounter - Curtis Mojica RN - 02/20/2024 9:07 AM CDT Attempted to contact [facility] for yearly appt. No answer, left message. 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
--- OUTSIDE RECORDS SUMMARY | 2025-07-19 08:15 | XMS_ITS | Encounter Summary ---
Author Organization [facility] Address [address] [place] [address] Phone Care Team Providers Care Institution Director Name Role Phone Flo Rios Primary Care Provider U cruz Provider, None Primary Care Provider Annabelle Stearns APRN, ESCORT CAR DRIVER Primary Care P jerome Reason for Visit * Reason Comments Medication Refill Encounter Details Date Type Department Care Team (Late st Contact Info) Description 04/09/2021 Refill [facility] - Primary Care - [id number] [place] [address] Flo Rios PAC Medication Refill Social History Tobacco Use Types Packs/Day Years Used Date Smoking Tobacco: Every Day Cigarettes 0.5 15 Smokeless Tobacco: Never PHQ-2 Answer Date Recorded Total Score - Questions 1-9 0 02/18 Comments No Sex and Gender Information Value Date Recorded Sex Assigned at Not on file Legal Sex Female 10:17 PM CDT Gender Identity Not on file Sexual Orientation Not on file COVID-19 Exposure Response Date Recorded In the last month, have you been in contact with someone who was confirmed or suspected to have Coronavirus / COVID-19? No / Unsure 03/16/2021 7:25 AM CDT documented as of this encounter Miscellaneous Notes * Telephone Encounter - Fol Rios PAC - 04/09/2021 11:25 AM CDT Rx refill approved. * Telephone Encounter - Emily Tellez RN - 04/09/2021 10:54 AM CDT Medication failed the protocol, provider to review and approve the medication order if appropriate. Requested Prescriptions Pending Prescriptions Disp Refills citalopram (CeleXA) 10 MG Tablet [Pharmacy Med Name: CITALOPRAM HBR 10 MG TABLET] 30 Tablet 0 Sig: TAKE 1 TABLET BY MOUTH EVERY DAY Citalopram (Celexa) (6 Month Refill Only) Protocol Failed - 04/09/2021 10:54 AM Failed - Patient has established therapy with Citalopram for at least 6 months Passed - No test in the past 12 months or most recent test was negative Passed - No active on record Passed - Citalopram dose is less than or equal to 40mg / day Passed - Visit with relevant provider in past 6 months or upcoming 90 days Recent Visits Date Type Provider Dept 03/16/21 Office Visit Flo Rios PAC Last 2 Left Showing recent visits within past 182 days and meeting all other requirements Future Appointments Date Type Provider Dept 04/15/21 Appointment Flo Rios PAC [facility] 05/19/21 Appointment Maximino Liu [facility] Showing future appointments within next 90 days and meeting all other requirements Passed - Has an encounter in the past 6 months with a depression, anxiety, adjustment disorder, OCD, or PTSD visit diagnosis levothyroxine (SYNTHROID) 88 MCG Tablet [Pharmacy Med Name: LEVOTHYROXINE 88 MCG TABLET] 30 Tablet 2 Sig: TAKE 1 TABLET BY MOUTH EVERY DAY Thyroid Hormones Protocol Failed - 04/09/2021 10:54 AM Failed - Normal TSH in past 12 months TSH Date Value Ref Range Status 03/16/2021 22.070 (H) 0.270 - 4.200 mIU/L Final Passed - No test in the past 12 months or most recent test was negative Passed - Visit with relevant provider in past 12 months or upcoming 90 days Recent Visits Date Type Provider Dept 03/16/21 Office Visit Flo Rios PAC Last 2 Left Showing recent visits within past 365 days and meeting all other requirements Future Appointments Date Type Provider Dept 04/15/21 Appointment Flo Rios PAC [facility] 05/19/21 Appointment Maximino Liu [facility] Showing future appointments within next 90 days and meeting all other requirements Passed - No active on record documented in this encounter Plan of Treatment Not on file documented as of this encounter Visit Diagnoses Diagnosis Anxiety Anxiety state, unspecified Hypothyroidism, unspecified type documented in this encounter Additional Health Concerns Infection Onset Date Last Indicated Resolved Time COVID - 19 11/23/2021 11/23/2021 12/13/2021 12:1 6 AM CDT Respiratory Rule-Out 10/27/2023 10/27/2023 024 6:28 PM BOBBIN HANDLER Respiratory Rule-Out 11/26/2023 11/26/2023 024 10:03 AM BOBBIN HANDLER COVID - 19 11/26/2023 11/26/2023 11/26/2023 10:0 2 AM BOBBIN HANDLER Influenza 11/26/2023 11/26/2023 12/03/2023 12:1 6 AM CDT Assessment Noted Time PHQ-9 Depression Total Score: 0 03/16/20 7:00 AM CDT documented as of this encounter Care Teams Institution Director Relationship Specialty Start Date End Date Flo Rios PAC PCP - General Physician Retail Assistant 03/16/21 06/30/22 Provider, None [place] PCP - General 07/01/22 04/27/23 Annabelle Robin, FRONT DESK HOST, ESCORT CAR DRIVER [address] [place] [address] PCP - General Advanced Practice Nurse 04/28/23 documented as of this encounter
--- OUTSIDE RECORDS SUMMARY | 2025-07-19 08:15 | XMS_ITS | Encounter Summary ---
Author Organization [facility] Address [address] [place] [address] Phone Care Team Providers Care Water Control Supervisor Name Role Phone Flo Rios Primary Care Provider U cruz Provider, None Primary Care Provider Annabelle Stearns APRN, BATCHING OPERATOR Primary Care P rovider Reason for Visit * Reason Comments Medication Refill Encounter Details Date Type Department Care Team (Late st Contact Info) Description 08/19/2021 Refill [facility] - Primary Care - [place] [address] [place] [address] Flo Rios, GIANCARLO Medication Refill Social History Tobacco Use Types [...] have Coronavirus / COVID-19? No / Unsure 08/03/2021 7:40 AM REDEVELOPMENT SPECIALIST documented as of this encounter Miscellaneous Notes * Telephone Encounter - Emily Tellez RN - 08/19/2021 12:13 PM CST The original prescription was discontinued on 08/03/2021 by Sandie Toledo RN for the following reason: Dose adjustment VELOPMENT SPECIALIST documented in this encounter Plan of Treatment Not on file documented as of this encounter Visit Diagnoses Diagnosis Hypothyroidism, unspecified type documented in this encounter Additional Health Concerns Infection Onset Date Last Indicated Resolved Time COVID - 19 11/23/2021 11/23/2021 12/13/2021 12:1 6 AM CDT Respiratory Rule-Out 10/27/2023 10/27/2023 024 6:28 PM REDEVELOPMENT SPECIALIST Respiratory Rule-Out 11/26/2023 11/26/2023 024 10:03 AM REDEVELOPMENT SPECIALIST COVID - 19 11/26/2023 11/26/2023 11/26/2023 10:0 2 AM REDEVELOPMENT SPECIALIST Influenza 11/26/2023 11/26/2023 12/03/2023 12:1 6 AM CDT Assessment Noted Time PHQ-9 Depression Total Score: 0 03/16/20 7:00 AM CDT documented as of this encounter Care Teams Water Control Supervisor Relationship Specialty Start Date End Date Flo Rios PAC PCP - General Physician Fire Production Operator 03/16/21 06/30/22 Provider, None [place] PCP - General 07/01/22 04/27/23 Annabelle Robin APRN, BATCHING OPERATOR [address] [place] [address] PCP - General Advanced Practice Nurse 04/28/23 documented as of this encounter
--- OUTSIDE RECORDS SUMMARY | 2025-07-19 08:15 | XMS_ITS | Clinical Summary ---
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 90 Tablet 3 07/12/2024 Active Active Problems Problem Noted Date Diagnosed Date Acquired hypothyroidism 02/02/2014 Overview (03/08/2023): ACQUIRED HYPOTHYROID NEC Polycystic ovaries 02/02/2014 Overview (03/08/2023): PCOS (polycystic ovarian syndrome) Multinodular goiter 12/18/2012 Overview (03/08/2023): Multiple thyroid nodules Immunizations Immunization Administration Dates Next Due Covid-19 Vaccine, Vector-nr, Rs-ad26, Pf, 0.5 Ml (AKILA/J&J) 12/25/2020 DTP Vaccine 03/13/1990, 6,03/26/1985,1984,1984 MMR Vaccine 01/10/1992,01/07/1986 OPV 03/13/1990, 6,03/26/1985,1984,1984 TDAP Vaccine 10/21/2009 Family History Medical History Relation Name Comments Hypertension Father No Known Problems Mother Diabetes Paternal Grandfather Relation Name Status Comments Father Alive Mother Alive Paternal Grandfather Social History Tobacco Use Types Packs/Day Years Used Date Smoking Tobacco: Every Day Cigarettes 0.5 15 Smokeless Tobacco: Never Tobacco Cessation:Ready to Q uit: No; Counseling Given: No Alcohol Use Standard Drinks/Week Comments Yes 0 (1 standard drink = 0.6 oz pur e alcohol) OCCASIONALLY [employer] Utilities Answer Date Recorded In the past 12 months has th e electric, gas, oil, or water company threatened to shut off services in your home? No 07/12/2024 Social Connection and Isolation Panel Answer Date Recorded In a typical week, how many times do you talk on the phone with family, friends, or neighbors? More than three times a week 07/12/2024 How often do you get togethe r with friends or relatives? Once a week 07/12/2024 How often do you attend [facility] ch or episcopalian services? Never 07/12/2024 Do you belong to any clubs o r organizations such as anglican groups, unions, fraternal or athletic groups, or school groups? No 07/12/2024 How often do you attend meet ings of the clubs or organizations you belong to? Never 07/12/2024 Are you , , di vorced, , never , or living with a partner? 07/12/2024 AUDIT-C Answer Date Recorded Q1: How often do you have a drink containing alc ohol? Monthly or less 07/12/2024 Q2: How many drinks containi ng alcohol do you have on a typical day when you are drinking? 3 or 4 07/12/2024 Q3: How often do you have si x or more drinks on one occasion? Never 07/12/2024 Overall Financial Resource Strain (CARDIA) Answe r Date Recorded How hard is it for you to pa y for the very basics like food, housing, medical care, and heating? Not hard at all 07/12/2024 PHQ-2 Answer Date Recorded Total Score - Questions 1-9 0 06/20 [facility] [place] of Occupat ional Health - Occupational Stress Questionnaire Answer Date Recorded Do you feel stress - tense, restless, nervous, or anxious, or unable to sleep at night because your mind is troubled all the time - these days? To some extent 07/12/2024 Exercise Vital Sign Answer Date Recorde d On average, how many days pe r week do you engage in moderate to strenuous exercise (like a brisk walk)? 1 day 07/12/2024 On average, how many minutes do you engage in exercise at this level? 30 min 07/12/2024 Hunger Vital Sign Answer Date Recorded Within the past 12 months, y ou worried that your food would run out before you got the money to buy more. Never true 07/12/20 24 Within the past 12 months, t he food you bought just didn't last and you didn't have money to get more. Never true 07/12/2024 PRAPARE - Transportation Answer Date Re corded In the past 12 months, has l ack of transportation kept you from medical appointments or from getting medications? No 06/20 In the past 12 months, has l ack of transportation kept you from meetings, work, or from getting things needed for daily living? No 07/12/2024 Housing Stability Vital Sign Answer Cesar e Recorded In the last 12 months, was t here a time when you were not able to pay the mortgage or rent on time? No 07/12/2024 In the past 12 months, how m any times have you moved where you were living? 0 07/12/2024 At any time in the past 12 m [facility], were you homeless or living in a [facility] (including now)? No 07/12/2024 Education Answer Date Recorded What is the [...] on file Sexual Orientation Not on file Last Filed Vital Signs Vital Sign Reading Time Taken Comments Blood Pressure 118/74 01/24/2025 9:44 AM CDT Pulse 81 01/24/2025 9:44 AM CDT Temperature 36.6 C (97.8 F) 01/24/2025 9:44 AM CDT Respiratory Rate 18 01/24/2025 9:44 AM CDT Oxygen Saturation 98% 01/24/2025 9:44 AM CDT Inhaled Oxygen Concentration - - Weight 99.8 kg (220 lb) 07/12/2024 8:44 AM CDT Height 167.6 cm (5' 6) 07/12/2024 8:44 AM CDT Body Mass Index 35.51 07/12/2024 8:44 AM CDT Plan of Treatment Health Maintenance Due Date Last Done Comments Mammogram 1984 Human Papillomavirus (HPV) Immunization (1 - 3-dose SCDM series) 2011 DTaP/Tdap/Td Immunization (6 - Td or Tdap) 10/21/2019 10/21/2009, 03/13/1990, 04/24/1986, Additional history exists Td Immunization Every 10 Years (Adults With 1 Tdap) 10/21/2019 10/21/2009 Discussion re Starting/Frequency of Mammograms 2024 Influenza Immunization (#1) 2025 SARS-COV-2 Immunization (2 - season) 2025 12/25/2020 Cervical Cancer Screening (CCS) 03/16/2026 HPV/Cotest 03/16/2026 03/16/2021 Pap Smear 03/16/2026 03/16/2021, 03/16/2021 Pneumococcal Immunization Combined (1 of 2 - PCV) 07/12/2050 Postponed from 2003 (Patient Temporarily Declines) Respiratory Syncytial Virus (RSV) Immunization (Adult) (1 - 1-dose 75+ series) 2059 Hepatitis C Virus (HCV) Screening Completed 03/16/2021 Hepatitis B Immunization Discontinued Meningococcal Immunization (ACWY) Aged Out No longer eligible based on patient's age to complete this topic Rotavirus Immunization Aged Out No lo nger eligible based on patient's age to complete this topic Procedures Procedure Name Priority Date/Time Associated Diagnosis Comments HEPATITIS C ANTIBODY Routine 03/16/2021 8:38 AM CDT Preventative health care (Adult) HUMAN PAPILLOMA VIRUS (HPV) 03/16/2021 12:00 AM CDT PATHOLOGY CYTOLOGY VP CONSTRUCTION 03/16/2021 12:00 AM CDT from Last 3 Months or Most Recently Relevant to Health Maintenance Results * HEPATITIS C ANTIBODY (03/16/2021 8:38 AM CDT) hepatitis C antibody 0.19 <1 S/CO [facility] ARCH [id number] 03/16/2021 9:41 PM CDT [facility] Comment: Signal/Cutoff ratio < 0.79 is Nondetected Signal/Cutoff ratio 0.80-0.99 is Grayzone Signal/Cutoff ratio > 0.99 is Detected Supplemental assays are recommended if signal/cutoff ratio is >/=1.00. Signal/cutoff ratio result >/= 5.00 is 97% predictive of positivity for recombinant immunoblot assay (RIBA) and will be reported to the [place] Department of Public Health as required. Blood Venipuncture / Unknown 03/16/2021 8:38 AM CDT 03/16/2021 8:38 AM CDT Flo Rios PAC CHEMISTRY ORDERABLES Fin al Result [facility] [address] [place] [address], [place] * PATHOLOGY CYTOLOGY VP CONSTRUCTION (03/16/2021 12:00 AM CDT) 03/16/2021 us Provider Scan PATHOLOGY/CYTOLOGY ORDERABLES Fi nal Result SCAN * HUMAN PAPILLOMA VIRUS (HPV) (03/16/2021 12:00 AM CDT) 03/16/2021 us Provider Scan LAB SEND OUTS Final Result SCAN from Last 3 Months or Most Recently Relevant to Health Maintenance Insurance [facility] Care Teams Salesperson Recreational Vehicles Relationship Specialty Start Date End Date Annabelle Robin APRN, PRINTING PLATE SETTER [address] [place] [address] PCP - General Advanced Practice Nurse 04/28/23
--- OUTSIDE RECORDS SUMMARY | 2025-07-19 08:16 | XMS_ITS | Encounter Summary ---
Author Organization [facility] Address [address] [place] [address] Phone Care Team Providers Care Tele Tech Name Role Phone Flo Rios Primary Care Provider U cruz Provider, None Primary Care Provider Annabelle Stearns APRN, SIDEROGRAPHER Primary Care P jerome Reason for Visit * Reason Comments Medication Refill Encounter Details Date Type Department Care Team (Late st Contact Info) Description 05/11/2021 [facility] [place] [address] [place] [address] Flo Rios PAC Medication Refill [...] have Coronavirus / COVID-19? No / Unsure 04/15/2021 7:38 AM CDT documented as of this encounter Miscellaneous Notes * Telephone Encounter - Flo Rios PAC - 05/11/2021 12:46 PM CDT Medication was discontinued at last OV. Refill refused. * Telephone Encounter - Flo Rios PAC - 05/11/2021 12:45 PM CDT Rx refill approved for levothyroxine. * Telephone Encounter - Emily Tellez RN - 05/11/2021 11:39 AM CDT Medication failed the protocol, provider to review and approve the medication order if appropriate. Requested Prescriptions Pending Prescriptions Disp Refills levothyroxine (SYNTHROID) 88 MCG Tablet [Pharmacy Med Name: LEVOTHYROXINE 88 MCG TABLET] 30 Tablet 0 Sig: TAKE 1 TABLET BY MOUTH EVERY DAY Thyroid Hormones Protocol Failed - 05/11/2021 11:39 AM Failed - Normal TSH in past 12 months TSH Date Value Ref Range Status 03/16/2021 22.070 (H) 0.270 - 4.200 mIU/L Final Passed - No test in the past 12 months or most recent test was negative Passed - Visit with relevant provider in past 12 months or upcoming 90 days Recent Visits Date Type Provider Dept 04/15/21 Office Visit Flo Rios PAC [facility] 03/16/21 Office Visit Flo Rios PAC [facility] Showing recent visits within past 365 days and meeting all other requirements Future Appointments Date Type Provider Dept 05/19/21 Appointment Lab[facility] 07/20/21 Appointment Flo Rios PAC [facility] Showing future appointments within next 90 days and meeting all other requirements Passed - No active on record citalopram (CeleXA) 10 MG Tablet [Pharmacy Med Name: CITALOPRAM HBR 10 MG TABLET] 30 Tablet 0 Sig: TAKE 1 TABLET BY MOUTH EVERY DAY Citalopram (Celexa) (6 Month Refill Only) Protocol Failed - 05/11/2021 11:39 AM Failed - Active on medication list Failed - Patient has established therapy with [...] days Recent Visits Date Type Provider Dept 04/15/21 Office Visit Flo Rios PAC [facility] 03/16/21 Office Visit Flo Rios PAC [facility] Showing recent visits within past 182 days and meeting all other requirements Future Appointments Date Type Provider Dept 05/19/21 Appointment [facility] 07/20/21 Appointment Flo Rios PAC [facility] future appointments within next 90 days and meeting all other requirements Passed - Has an encounter in the past 6 months with a depression, anxiety, adjustment disorder, OCD, or PTSD visit diagnosis documented in this encounter Plan of Treatment Not on file documented as of this encounter Visit Diagnoses Diagnosis Hypothyroidism, unspecified type Anxiety Anxiety state, unspecified documented in this encounter Additional Health Concerns Infection Onset Date Last Indicated Resolved Time COVID - 19 11/23/2021 11/23/2021 12/13/2021 12:1 6 AM CDT Respiratory Rule-Out 10/27/2023 10/27/2023 024 6:28 PM BOAT DIESEL MOTOR MECHANIC Respiratory Rule-Out 11/26/2023 11/26/2023 024 10:03 AM BOAT DIESEL MOTOR MECHANIC COVID - 19 11/26/2023 11/26/2023 11/26/2023 10:0 2 AM BOAT DIESEL MOTOR MECHANIC Influenza 11/26/2023 11/26/2023 12/03/2023 12:1 6 AM CDT Assessment Noted Time PHQ-9 Depression Total Score: 0 03/16/20 7:00 AM CDT documented as of this encounter Care Teams Tele Tech Relationship Specialty Start Date End Date Flo Rios PAC PCP - General Physician Child Care Cook 03/16/21 06/30/22 Provider, None [place] PCP - General 07/01/22 04/27/23 Annabelle Robin APRN, SIDEROGRAPHER [address] [place] [address] PCP - General Advanced Practice Nurse 04/28/23 documented as of this encounter
[2025-07-19 08:40] VITALS: BP 105/68; PULSE 74; RESP 16; O2SAT 97
[2025-07-19 08:41] VITALS: BP 105/68; PULSE 88; RESP 16; TEMP 36.7; O2SAT 98
--- NOTE | 2025-07-19 08:41 | ED_ITS ---
HPI - Abdominal Pain General Chief Complaint: Abdominal Pain Stated Complaint: Lower Right abdominal x5day Time Seen by Provider: 07/19/25 08:15 Source: patient and family Mode of arrival: ambulatory Limitations: no limitations History of Present Illness HPI narrative: This is a 39-year-old female with history of PCOS, endometriosis, hypothyroidism who presents to the ED for right lower quadrant abdominal pain. Patient states that for the past 4 5 days, she has been having right lower quadrant abdominal pain that does not radiate. Denies nausea, vomiting. She does not recall doing anything to cause the pain. Denies fevers, chills, chest pain. She states that it does feel similar to her prior episodes of endometriosis but more localized. She did have laparoscopy to treat this several years ago and was otherwise doing well until now. notes that there was an episode at dinner few days ago she was eating but felt full lower than she normally does apparently because she was trying to avoid exacerbating the pain to the right lower quadrant. Her last normal bowel movement was yesterday. Last normal menstrual period 07/12/2025. Related Data Home Medications ?Medication ?Instructions ?Recorded ?Confirmed ?Last Taken ?Type levothyroxine 88 mcg tablet 88 mcg PO DAILY 04/20/21 0 04/24/21 04/24/21 History Allergies Allergy/AdvReac Type Severity Reaction Status Date / Time clarithromycin Allergy Mild Rash Verified 07/19/25 08:44 Review of Systems 2 Review of Systems: Gen.: Denies fevers or chills Eyes: Denies eye pain or visual change ENT: Denies congestion Respiratory: Denies shortness of breath or cough CV: Denies chest pain or palpitations GI: As per HPI denies burning, urgency, frequency or hematuria Musculoskeletal: Denies back pain or muscle pain Neuro: Denies numbness, tingling, weakness or focal weakness Skin: Denies rash Except as documented, all other systems reviewed and negative [facility] Past Medical History Medical History Smoker Hypothyroidism Obesity Surgical History Surgical History History of section Social History Social History Smoking packs per day: 0.5 Smoking cigarettes per day: 10.0 Years smoked: 20 Smoking pack-years: 10.00 Smoking status: Current every day smoker Alcohol use details: 1 PER MONTH Substance use: never Living arrangements: with family Exam 2 Narrative: APPEARANCE: No acute distress, nontoxic, resting in bed EYES: EOMI HEENT: Normocephalic, atraumatic, OMM RESPIRATORY: No respiratory distress Clear to auscultation bilaterally with no rhonchi wheezing or rales. CARDIOVASCULAR: Regular rate and rhythm without murmurs rubs or gallops. ABDOMINAL: Soft, tenderness to palpation to the right lower quadrant, nondistended, no rebound or guarding MUSCULOSKELETAl: Moves all extremities. No clubbing, cyanosis or edema. NEURO: Awake and alert. Following commands, speech normal, no focal deficits SKIN:: Warm, dry. No rashes lesions or abrasions PSYCHIATRIC: Normal affect/mood, Course Vital Signs Vital signs: Vital Signs Pulse Rate 74 07/19/25 08:40 Respiratory Rate 16 07/19/25 08:40 Blood Pressure 105/68 07/19/25 08:40 Pulse Oximetry 97 07/19/25 08:40 Temperature 98.1 F 07/19/25 08:41 Pulse Rate 81 07/19/25 12:07 Respiratory Rate 16 07/19/25 12:07 Blood Pressure 120/75 07/19/25 12:07 Pulse Oximetry 100 07/19/25 12:07 Oxygen Delivery Room Air 07/19/25 08:41 MDM - Abdominal Pain MDM Narrative Medical decision making narrative: 39-year-old female Presenting for right lower quadrant abdominal pain. On initial evaluation patient was in no acute distress afebrile, hemodynamic stable. Differentials include but are not limited to: Ovarian torsion, ovarian cyst, ectopic , Appendicitis, constipation, IBD, IBS, ureterolithiasis, enterocolitis, colitis, hernia Notable exam findings: Tenderness to palpation of the right lower quadrant Notable lab findings: Leukocytosis at 11.1. Anemia to 9.5. CMP without significant abnormalities. UA showed leukocytes with leukocyte esterase with rare bacteria. Notable imaging findings: Transvaginal ultrasound showed possible hydrosalpinx as well as a right ovarian cyst without evidence of torsion Patient had slight improvement of her pain with Toradol. Given the hydrosalpinx, I did discuss the case with Dr. Gaming, OBGYN, recommends prophylactically treating for tubo-ovarian abscess although this seems less consistent with that and will see her in clinic next week. Patient was given 500 mg Rocephin IM and given prescriptions for doxycycline and Flagyl. Patient was agreeable to this plan. Given strict return precautions. Medical Records Attestation: I reviewed the patient's medical records. Lab Data Attestation: I reviewed the patient's lab results. 07/19/25 08:54 07/19/25 08:54 Labs: Lab Results 07/19/25 07/19/25 07/19/25 Range/Units 08:32 08:33 08:54 WBC 11.1 H (4.5-10.0) K/mm3 RBC 4.73 (4.2-5.4) M/mm3 Hgb 9.5 L (12.0-15.0) g/dL Hct 31.8 L (37.0-47.0) % MCV 67.2 L (80-100) fl MCH 20.1 L (26-34) pg MCHC 29.9 L (32-36) g/dl RDW 18.7 H (11.5-14.5) % Plt Count 338 (150-375) k/mm3 MPV 9.0 (7.4-10.4) fl Immature Gran % (Auto) 0.7 H (0-0.5) % Neut % (Auto) 60.3 (45.5-73.1) % Lymph % (Auto) 26.7 (18.3-44.2) % Wise % (Auto) 10.3 H (2.6-8.5) % Eos % (Auto) 1.5 (0-4.4) % Baso % (Auto) 0.5 (0.2-1.2) % Lymph # (Auto) 2.97 (0.9-3.2) K/mm3 Wise # (Auto) 1.2 H (0.1-0.6) K/mm3 Eos # (Auto) 0.2 (0-0.3) K/mm3 Baso # (Auto) 0.1 (0.0-0.1) K/mm3 Abs Immat Gran (auto) 0.08 H (0.00-0.031) K/mm3 Absolute Neuts (auto) 6.7 (1.3-6.7) K/mm3 Absolute Nucleated RBC 0.000 (0.0-0.012) K/mm3 Band Neutrophils % Not Reportable Nucleated RBC % 0.0 (0.0-0.2) % Platelet Estimate Adequate (Adequate) Polychromasia 1+ Hypochromasia 1+ Anisocytosis 1+ Schistocytes None seen Sodium 135 L (137-145) mmol/L Potassium 4.3 (3.4-5.0) mmol/L Chloride 106 (98-107) mmol/L Carbon Dioxide 23 (22-30) mmol/L Anion Gap 6 (4-12) mmol/L BUN 9 (7-17) mg/dL Creatinine 0.86 (0.7-1.0) mg/dL Estim Creat Clear Calc 90 ml/min Estimated GFR > 60 (59 - ) Glucose 91 (65-110) mg/dL Calcium 9.2 (8.4-10.2) mg/dL Total Bilirubin 1.0 (0.2-1.3) mg/dL AST 38 H (14-36) U/L ALT 35 (6-35) U/L Alkaline Phosphatase 101 (38-126) U/L Total Protein 9.4 H (6.3-8.2) g/dL Albumin 4.3 (3.5-5.1) g/dL Urine Color Yellow (Yellow) Urine Appearance Cloudy H (Clear) Urine pH 5.5 (5.0-9.0) Ur Specific [place] 1.014 (1.001-1.035) Urine Protein Negative (Negative) mg/dL Urine Glucose (UA) Negative (Negative) mg/dL Urine Ketones Negative (Negative) mg/dL Ur Blood (Man) Negative (Negative) Urine Nitrate Negative (Negative) Urine Bilirubin Negative (Negative) Urine Urobilinogen 1.0 (<2.0) mg/dL Leukocyte Esterase Rfl 3+ H (Negative) JANIA/UL Urine RBC 0-2 (0-2) /hpf Urine WBC 21-50 H (0-3) /hpf Ur Squamous Epith Cells Few (Few) /hpf Urine Bacteria Rare /hpf Urine Casts 0-2 Urine Test Negative Imaging Data Attestation: I personally reviewed and interpreted this imaging study as follows: Radiologist's impression: ITS Impressions Pelvic/Transvag US 07/19/25 10:16 IMPRESSION: Tubular fluid-filled structure in the right adnexa may represent hydrosalpinx or hydrosalpinx. There is a right ovarian cyst without evidence of ovarian torsion. Discharge Plan Discharge Clinical Impression: Hydrosalpinx Patient Disposition: Home Condition: Stable Instructions: Antibiotic Form Additional Instructions: You were found to have a hydrosalpinx which is a fluid collection in your fallopian tube. This is likely benign but may be due to a tubo-ovarian abscess. Because of this, he will be covered with antibiotics. I did discuss your case with Dr. Gaming, OBGYN, who will see you in the office next week. You may take Tylenol and ibuprofen for your pain. Your given prescriptions for doxycycline and Flagyl, take these as prescribed. Return to the ED for any new or worsening symptoms. As there is a small chance that there is a 2 ovarian abscess, you should abstain from sexual activity or use condoms only until clearance by OBGYN. For pain, discomfort or temperature greater than or equal to 100.8 ?F please alternate the following 2 medications as needed. First medication- acetaminophen/Tylenol- 1000mg every 6-8 hours as needed for above indications. Second medication- ibuprofen/Motrin-600mg every 6-8 hours as needed for above indication. Patient Language: Amharic Prescriptions: New doxycycline hyclate 100 mg capsule 100 mg PO BID 14 Days Qty: 28 0RF metronidazole 500 mg tablet 500 mg PO Q12H 14 Days Qty: 28 0RF No Action famotidine 20 mg tablet 20 mg PO DAILY Qty: 30 0RF dicyclomine 20 mg tablet 20 mg PO TID PRN (Reason: abdominal pain) Qty: 30 0RF ondansetron 4 mg tablet,disintegrating 4 mg PO Q8H PRN (Reason: nausea and vomiting) Qty: 10 0RF levothyroxine 88 mcg Tablet 88 mcg PO DAILY hydrocodone-acetaminophen 5-325 mg tablet 1 tablet PO Q4H PRN (Reason: pain) Qty: 30 0RF clindamycin HCl 300 mg capsule 300 mg PO Q8H Qty: 21 0RF hydrocodone-acetaminophen 5-325 mg tablet 1 tablet PO Q6H PRN (Reason: pain) Qty: 10 0RF sulfamethoxazole-trimethoprim [Bactrim DS] 800-160 mg tablet 1 tablet PO Q12H 7 Days Qty: 14 0RF clindamycin HCl 300 mg capsule 300 mg PO Q8H Qty: 21 0RF Follow-up/Referrals: PHYSICIAN NOT ON STAFF,NONSTAFF [Primary Care Provider]
[2025-07-19 08:48] LABS: Add Urine Microscopic? YES; Appearance Urine Cloudy (Clear); Glucose Urine UA Negative (Negative); Leukocyte Esterase Ur 3+ LEU/UL (Negative); Nitrate Urine Negative (Negative); Non Pathogenic Casts 0-2; Specific Grav Ur 1.014 (1.001-1.035)
[2025-07-19] MEDS: SODIUM CHLORIDE 0.9% IV 1,000 ML 999 ML IV CONT (08:52)
[2025-07-19] MEDS: KETOROLAC 30 MG/ML VIAL (*BKC) IV PUSH (08:54)
[2025-07-19 09:00] LABS: Hematocrit 31.8 % (37.0-47.0); Hemoglobin 9.5 g/dL (12.0-15.0); Immature Granulocyte Percent A 0.7 % (0-0.5); Lymphocytes Absolute Auto 2.97 K/mm3 (0.9-3.2); Mean Corpuscular HGB Conc 29.9 g/dl (32-36); Mean Corpuscular Hemoglobin 20.1 pg (26-34); Mean Corpuscular Volume 67.2 fl (80-100); Nucleated Red Blood Cells Absolute Auto 0.000 K/mm3 (0.0-0.012); Nucleated Red Blood Cells Perc 0.0 % (0.0-0.2); Platelet Count Result 338 k/mm3 (150-375); Red Blood Count 4.73 M/mm3 (4.2-5.4); White Blood Count 11.1 K/mm3 (4.5-10.0)
[2025-07-19 09:11] LABS: Alanine Aminotransferase 35 U/L (6-35); Albumin Level 4.3 g/dL (3.5-5.1); Alkaline Phosphatase 101 U/L (38-126); Aspartate Amino Transferase 38 U/L (14-36); Bilirubin,Total 1.0 mg/dL (0.2-1.3); Blood Urea Nitrogen 9 mg/dL (7-17); Calcium 9.2 mg/dL (8.4-10.2); Chloride 106 mmol/L (98-107); Estimated CRCL calculation 90 ml/min; Estimated Glomerular Filt Rate > 60; Glucose 91 mg/dL (65-110); Potassium 4.3 mmol/L (3.4-5.0); Sodium 135 mmol/L (137-145); Total Protein 9.4 g/dL (6.3-8.2)
[2025-07-19 09:23] LABS: Anion Gap 6 mmol/L (4-12); Carbon Dioxide 23 mmol/L (22-30)
[2025-07-19 09:24] LABS: Pregnancy On Board Control Positive
[2025-07-19 09:36] LABS: Anisocytosis 1+; Hypochromasia 1+; Polychromasia 1+; Schistocytes None Seen
--- OUTSIDE RECORDS SUMMARY | 2025-07-19 10:38 | XMS_ITS | Encounter Summary ---
Author Organization [facility] Address [address] [place] [address] Phone Care Team Providers Care Pharmacy Technician Trainee Name Role Phone Flo Rios Primary Care Provider U cruz Provider, None Primary Care Provider Annabelle Stearns APRN, PRESENTATION SPECIALIST Primary Care P rovider Reason for Visit * Reason Comments Medication Refill Encounter Details Date Type Department Care Team (Late st Contact Info) Description 08/19/2021 Refill [facility] - Primary Care - [place] [address] [place] [address] Flo Rios, GIANCARLO Medication Refill [...] COVID-19? No / Unsure 08/03/2021 7:40 AM SALES AND CUSTOMER RELATIONS REP documented as of this encounter Miscellaneous Notes * Telephone Encounter - Emily Tellez RN - 08/19/2021 12:13 PM CST The original prescription was discontinued on 08/03/2021 by Sandie Toledo RN for the following reason: Dose adjustment S AND CUSTOMER RELATIONS REP documented in this encounter Plan of Treatment Not on file documented as of this encounter Visit Diagnoses Diagnosis Hypothyroidism, unspecified type documented in this encounter Additional Health Concerns Infection Onset Date Last Indicated Resolved Time COVID - 19 11/23/2021 11/23/2021 12/13/2021 12:1 6 AM CDT Respiratory Rule-Out 10/27/2023 10/27/2023 024 6:28 PM SALES AND CUSTOMER RELATIONS REP Respiratory Rule-Out 11/26/2023 11/26/2023 024 10:03 AM SALES AND CUSTOMER RELATIONS REP COVID - 19 11/26/2023 11/26/2023 11/26/2023 10:0 2 AM SALES AND CUSTOMER RELATIONS REP Influenza 11/26/2023 11/26/2023 12/03/2023 12:1 6 AM CDT Assessment Noted Time PHQ-9 Depression Total Score: 0 03/16/20 7:00 AM CDT documented as of this encounter Care Teams Pharmacy Technician Trainee Relationship Specialty Start Date End Date Flo Rios PAC PCP - General Physician Digital Camera Technician 03/16/21 06/30/22 Provider, None [place] PCP - General 07/01/22 04/27/23 Annabelle Robin APRN, PRESENTATION SPECIALIST [address] [place] [address] PCP - General Advanced Practice Nurse 04/28/23 documented as of this encounter
--- OUTSIDE RECORDS SUMMARY | 2025-07-19 10:38 | XMS_ITS | Encounter Summary ---
Author Organization [facility] Address [address] [place] [address] Phone Care Team Providers Care Recording Engineer Name Role Phone Annabelle Robin APRN, CNP Primary Care P rovider Reason for Visit * Reason Comments Medication Refill Encounter Details Date Type Department Care Team (Late st Contact Info) Description 02/18/2024 Refill [facility] - Primary Care - [place] [address] [place] [phone] Annabelle Robin APRN, CNP [address] [place] [address] Medication Refill Social History Tobacco [...] encounter Miscellaneous Notes * Telephone Encounter - Annablele Robin APRN, CNP - 02/22/2024 11:09 AM [...] 03/08/23 Office Visit Annabelle Robin APRN, CNP [facility] Showing recent visits within past 365 [...] 02/21/2024 8:11 AM CDT Attempted to contact [place] for yearly appt. No answer, left message. [...] documented as of this encounter Care Teams Recording Engineer Relationship Specialty Start Date End Date Annabelle Robin APRN, PROCESS STRIPPER [address] [place] [address] PCP - General Advanced Practice Nurse 04/28/23 documented as of this encounter
--- OUTSIDE RECORDS SUMMARY | 2025-07-19 10:38 | XMS_ITS | Clinical Summary ---
Author Organization [facility] Address [address] [place] [address] Care Team Providers Care Inspector And Unloader Name Role Phone Unavailable Primary Care Provider [...]
--- OUTSIDE RECORDS SUMMARY | 2025-07-19 10:38 | XMS_ITS | Encounter Summary ---
Author Organization [facility] Address [address] [place] [address] Phone Care Team Providers Care Tank Wagon Operator Name Role Phone Annabelle Robin APRN, LASHA Primary Care P jerome Reason for Visit * Reason Comments Medication Refill Encounter Details Date Type Department Care Team (Late st Contact Info) Description 11/24/2023 Refill [facility] Care - [place] [address] [place] [address] Dayday Gifford, GIANCARLO [address] [place] [address] Medication Refill Social History Tobacco [...] Dept 03/08/23 Office Visit Annabelle Robin APRN, TOP LIFT AND AUTOMATIC WINDOW REPAIRER [facility] Showing recent visits within past 365 days and meeting all other requirements Future Appointments No visits were found meeting these conditions. 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 documented in this encounter Additional Health Concerns Infection Onset Date Last Indicated Resolved Time Respiratory Rule-Out 11/26/2023 11/26/2023 024 10:03 AM ATHLETIC SCOUT COVID - 19 11/26/2023 11/26/2023 11/26/2023 10:0 2 AM ATHLETIC SCOUT Influenza 11/26/2023 11/26/2023 12/03/2023 12:1 6 AM CDT Assessment Noted Time PHQ-9 Depression Total Score: 0 03/16/20 21 7:00 AM CDT documented as of this encounter Care Teams Tank Wagon Operator Relationship Specialty Start Date End Date Annabelle Robin APRN, TOP LIFT AND AUTOMATIC WINDOW REPAIRER [address] [place] [address] PCP - General Advanced Practice Nurse 04/28/23 documented as of this encounter
--- OUTSIDE RECORDS SUMMARY | 2025-07-19 10:38 | XMS_ITS | Clinical Summary ---
Author Organization [facility] Address [address] [place] [address] Phone Care Team Providers Care Technical Manager Name Role Phone Annabelle Robin APRN, ASSISTANT PROFESSOR OF ENGLISH Primary Care P rovider Allergies Active Allergy [...] = 0.6 oz pur e alcohol) OCCASIONALLY [employer] Utilities Answer Date Recorded In the past [...] week 07/12/2024 How often do you attend [facility] ch or zoroastrian services? Never 07/12/2024 Do you belong to any clubs o r organizations such as taoism groups, unions, fraternal or athletic groups, or [...] Total Score - Questions 1-9 0 06/20 [facility] [place] of Occupat ional Health - Occupational Stress [...] any time in the past 12 m [facility], were you homeless or living in a group home (including now)? No 07/12/2024 Education Answer Date [...] (HPV) 03/16/2021 12:00 AM CDT PATHOLOGY CYTOLOGY TWINE REELING MACHINE OPERATOR 03/16/2021 12:00 AM CDT from Last 3 Months or Most Recently Relevant to Health Maintenance Results * HEPATITIS C ANTIBODY (03/16/2021 8:38 AM CDT) hepatitis C antibody 0.19 <1 S/CO [facility] ARCH [id number] B 03/16/2021 9:41 PM CDT [facility] Comment: Signal/Cutoff ratio < 0.79 is Nondetected Signal/Cutoff ratio 0.80-0.99 is Grayzone Signal/Cutoff ratio > 0.99 is Detected Supplemental assays are recommended if signal/cutoff ratio is >/=1.00. Signal/cutoff ratio result >/= 5.00 is 97% predictive of positivity for recombinant immunoblot assay (RIBA) and will be reported to the [place] Department of Public [facility] as required. Blood Venipuncture / Unknown 03/16/2021 8:38 AM CDT 03/16/2021 8:38 AM CDT Flo Rios PAC CHEMISTRY ORDERABLES Fin al Result [facility] [address] [place] [address], [place] * PATHOLOGY CYTOLOGY TWINE REELING MACHINE OPERATOR (03/16/2021 12:00 AM CDT) 03/16/2021 us Provider Scan PATHOLOGY/CYTOLOGY ORDERABLES Fi nal Result SCAN * HUMAN PAPILLOMA VIRUS (HPV) (03/16/2021 12:00 AM CDT) 03/16/2021 us Provider Scan LAB SEND OUTS Final Result SCAN from Last 3 Months or Most Recently Relevant to Health Maintenance Insurance [facility] Care Teams Technical Manager Relationship Specialty Start Date End Date Annabelle Robin APRN, ASSISTANT PROFESSOR OF ENGLISH [address] [place] [address] PCP - General Advanced Practice Nurse 04/28/23
--- OUTSIDE RECORDS SUMMARY | 2025-07-19 10:38 | XMS_ITS | Encounter Summary ---
Author Organization [facility] Address [address] [place] [address] Phone Care Team Providers Care Registered Dental Assistant Name Role Phone Flo Rios Primary Care Provider U cruz Provider, None Primary Care Provider Annabelle Stearns APRN, LICENSED ARCHITECT Primary Care P jerome Reason for Visit * Reason Comments Medication Refill Encounter Details Date Type Department Care Team (Late st Contact Info) Description [facility] [place] [address] [place] [address] Flo Rios PAC Medication Refill [...] Telephone Encounter - Flo Rios PAC - 04/09/2021 11:25 AM CDT [...] Dept 03/16/21 Office Visit Flo Rios PAC [employer] Showing recent visits within past 182 days and meeting all other requirements Future Appointments Date Type Provider Dept 04/15/21 Appointment Flo Rios PAC [employer] [facility] 05/19/21 [facility]ointment [facility] Showing future appointments within next 90 days [...] Dept 03/16/21 Office Visit Flo Rios PAC [employer] Showing recent visits within past 365 days and meeting all other requirements Future Appointments Date Type Provider Dept 04/15/21 Appointment Flo Rios PAC [facility] 05/19/21 Appointment Maximino Liu [facility] Showing future appointments within next 90 [...] Respiratory Rule-Out 10/27/2023 10/27/2023 024 6:28 PM EPITAXIAL REACTOR TECHNICIAN Respiratory Rule-Out 11/26/2023 11/26/2023 024 10:03 AM EPITAXIAL REACTOR TECHNICIAN COVID - 19 11/26/2023 11/26/2023 11/26/2023 10:0 2 AM EPITAXIAL REACTOR TECHNICIAN Influenza 11/26/2023 11/26/2023 12/03/2023 12:1 6 AM CDT Assessment Noted Time PHQ-9 Depression Total Score: 0 03/16/20 7:00 AM CDT documented as of this encounter Care Teams Registered Dental Assistant Relationship Specialty Start Date End Date Flo Rios PAC PCP - General Physician Labor Crew Supervisor 03/16/21 06/30/22 Provider, None [place] PCP - General 07/01/22 04/27/23 Annabelle Robin, FIRE EXTINGUISHER INSTALLER, LICENSED ARCHITECT [address] [place] [address] PCP - General Advanced Practice Nurse 04/28/23 documented as of this encounter
--- OUTSIDE RECORDS SUMMARY | 2025-07-19 10:38 | XMS_ITS | Encounter Summary ---
Author Organization [facility] Address [address] [place] [address] Phone Care Team Providers Care Junior Bookkeeper Name Role Phone Flo Rios Primary Care Provider U cruz Provider, None Primary Care Provider Annabelle Stearns APRN, DIVORCE MEDIATOR Primary Care P jerome Reason for Visit * Reason Comments Medication Refill Encounter Details Date Type Department Care Team (Late st Contact Info) Description [facility] [place] [address] [place] [address] Flo Rios PAC Medication Refill [...] Dept 04/15/21 Office Visit Flo Rios PAC [facility] [employer] [facility] 03/16/21 Office Visit Flo Rios PAC [facility] [employer] [facility] Showing recent visits within past 365 days and meeting all other requirements Future Appointments Date Type Provider Dept 05/19/21 [facility]ment [facility] 07/20/21 Appointment Flo Rios PAC [facility] [employer] [facility] Showing future appointments within next 90 [...] Dept 04/15/21 Office Visit Flo Rios PAC [employer] [facility] 03/16/21 Office Visit [facility] [employer] [facility] Showing recent visits within past 182 days and meeting all other requirements Future Appointments Date Type Provider Dept 05/19/21 Appointment [facility] [employer] [facility] 07/20/21 Appointment Flo Rios PAC [employer] Showing future appointments within next 90 days [...] Respiratory Rule-Out 10/27/2023 10/27/2023 024 6:28 PM TEST MANAGER Respiratory Rule-Out 11/26/2023 11/26/2023 024 10:03 AM TEST MANAGER COVID - 19 11/26/2023 11/26/2023 11/26/2023 10:0 2 AM TEST MANAGER Influenza 11/26/2023 11/26/2023 12/03/2023 12:1 6 AM CDT Assessment Noted Time PHQ-9 Depression Total Score: 0 03/16/20 7:00 AM CDT documented as of this encounter Care Teams Junior Bookkeeper Relationship Specialty Start Date End Date Flo Rios PAC PCP - General Physician Slime Plant Operator 03/16/21 06/30/22 Provider, None [place] PCP - General 07/01/22 04/27/23 Annabelle Robin APRN, DIVORCE MEDIATOR [address] [place] [address] PCP - General Advanced Practice Nurse 04/28/23 documented as of this encounter
--- OUTSIDE RECORDS SUMMARY | 2025-07-19 10:38 | XMS_ITS | Clinical Summary ---
Author Organization [facility] Address [address] [place] [address] Care Team Providers Care Digital Media Representative Name Role Phone No, Physician Primary Care Provider [phone] Allergies Active Allergy Reactions Criticality Noted Date [...] on file Legal Sex Female 1:30 PM ORACLE SOA ARCHITECT Gender Identity Not on file Sexual Orientation [...] HEPATITIS C AB Routine 08/22/2014 6:30 AM ORACLE SOA ARCHITECT from Last 3 Months or Most Recently Relevant to Health Maintenance Results * Serum Hepatitis C ab (08/22/2014 6:30 AM ORACLE SOA ARCHITECT) HCV ab Negative Negative HISTORICAL RESULTS Serum 08/22/2014 6:30 AM ORACLE SOA ARCHITECT Narrative HISTORICAL RESULTS - 08/22/2014 4:40 PM ORACLE SOA ARCHITECT #[id number] [facility] DOA, Varicella IgG, and Obstetric Panel Latonya Ocasio MD LAB BLOOD ORDERABLE S Final Result HISTORICAL RESULTS from Last 3 Months or Most Recently Relevant to Health Maintenance Insurance [employer] ACCESS [employer] ACCESS Care Teams Digital Media Representative Relationship Specialty Start Date End Date No, Physician PCP - General 5/14/22
[2025-07-19 10:48] VITALS: BP 117/71; PULSE 68; RESP 17; O2SAT 98
[2025-07-19 12:07] VITALS: BP 120/75; PULSE 81; RESP 16; O2SAT 100
[2025-07-19] MEDS: cefTRIAXone 1 GM VIAL 0.5 GM IM (12:08)
[2025-07-19] MEDS: LIDOCAINE 1% LOCAL INJ 10 ML VIAL (12:11)
== END 2025-07-19 12:19 | disposition home or self-care (01) ==
PROVIDERS: Emergency Provider Student in an Organized Health Care Education/Training Program
DX: N70.11 Chronic salpingitis (principal); E03.9 Hypothyroidism, unspecified; E28.2 Polycystic ovarian syndrome; N80.9 Endometriosis, unspecified; F17.210 Nicotine dependence, cigarettes, uncomplicated; Z79.899 Other long term (current) drug therapy
CPT/HCPCS: 36415; 76830; 76856; 80053; 81001; 81025; 85025; 87086; 96361; 96372; 96374; 99284; J0696; J1885; J2003; J7030

== ENCOUNTER 2025-07-19 21:32 | Observation (INO) | payer BC, SELFPAY ==
--- NOTE | ~2025-07-19 | CT_ITS ---
CTA CHEST CLINICAL HISTORY: New onset SOB. . COMPARISON: None TECHNIQUE: Helical CTA performed from thoracic inlet to upper abdomen IV contrast information not listed in PACS Coronal, sagittal reformats. Multiplanar MIPS CT images acquired with automatic exposure control for dose reduction DLP: 510 mGy-cm FINDINGS: Pulmonary arteries: No PE. Thoracic Aorta: No dissection or aneurysm. Aberrant origin right subclavian artery. Heart/pericardium: Unremarkable. RV/LV ratio: Normal. Lungs/Pleura: Significant bibasilar atelectasis. Bibasilar airspace disease. Tracheobronchial tree: Patent. Nodes: No enlarged nodes. Epicardial fat pad nodes. Bones: No acute bony abnormality. Soft tissues: Enlarged thyroid. Visualized upper abdomen: Hepatomegaly, with steatosis. Suspect cirrhosis. Gallstone. Splenomegaly. Sadi hepatis nodes. IMPRESSION: 1. No PE. 2. Bibasilar airspace disease. Consider aspiration. 3. Minimally enlarged lymph nodes within sadi hepatis. Recommend surveillance. 4. Thyroid goiter. Reviewed, dictated and finalized at location R. BRUSHER IMPRESSION: 1. No PE. 2. Bibasilar airspace disease. Consider aspiration. 3. Minimally enlarged lymph nodes within sadi hepatis. Recommend surveillance . 4. Thyroid goiter.
--- NOTE | ~2025-07-19 | CT_ITS ---
CT abdomen pelvis w con Clinical History: diffuse abd pain, N/V, hydrosalpinx on us today . Comparison: Pelvic ultrasound earlier same day CT abdomen pelvis 04/30/2024 Technique: Axial images lung bases to symphysis pubis 100 mL Omnipaque 350 Coronal, sagittal reformats CT images acquired with automatic exposure control for dose reduction DLP: 1134 mGy-cm Findings: Lung bases: Clear. Visualized heart and pericardium: Unremarkable. Liver: Enlarged. Steatosis. Gallbladder: Stone. Spleen: Enlarged. Pancreas: Unremarkable. Adrenal glands: Unremarkable. Kidneys: Right kidney- No hydronephrosis. No renal stones. Left kidney- No hydronephrosis. No renal stones. Distal esophagus/stomach: Unremarkable. Small bowel loops: Normal caliber and wall thickness. Colon: Normal caliber and wall thickness. Normal RLQ appendix. Nodes: Small nodes epicardial fat pads. Peritoneum: Small scattered ascites. No free air. Urinary bladder: Unremarkable. Uterus: Unremarkable. Adnexa: Tubular structure right side with surrounding inflammation. Pelvic free fluid. Bones: No acute bony abnormality. Soft tissues: Unremarkable. Aorta: No aneurysm or dissection. IVC: Unremarkable. Main portal vein/SMV/splenic vein: Patent. IMPRESSION: 1. Right hydrosalpinx and/or pyosalpinx. Developing tubo-ovarian abscess not excluded. Reviewed, dictated and finalized at location R. IMPRESSION: 1. Right hydrosalpinx and/or pyosalpinx. Developing tubo-ovarian abscess not e xcluded.
[2025-07-19 21:35] VITALS: BP 135/84; PULSE 104; RESP 21; TEMP 37.3; O2SAT 99
[2025-07-19 21:54] VITALS: BP 141/72; PULSE 102; RESP 13; O2SAT 98
--- NOTE | 2025-07-19 21:54 | ED.GENADULT ---
HPI - General Adult General Chief complaint: Recheck/Abnormal Lab/Rx <JOSÉ MANUEL Mckeon Last Filed: 07/20/25 02:42> Stated complaint: infected fallopian tube <JOSÉ MANUEL Mckeon Last Filed: 07/20/25 02:42> Time Seen by Provider: 07/19/25 21:46 <JOSÉ MANUEL Mckeon Last Filed: 07/20/25 02:42> Source: patient and old records reviewed <JOSÉ MANUEL Mckeon Last Filed: 07/20/25 02:42> Mode of arrival: ambulatory <JOSÉ MANUEL Mckeon Filed: 07/20/25 02:42> Limitations: no limitations <JOSÉ MANUEL Mckeon Filed: 07/20/25 02:42> History of Present Illness HPI narrative: Patient is a 39-year-old female, w/ PMH of PCOS, endometriosis, hypothyroidism, who presents the ED with c/o worsening pain in R lower abdomen. Patient was seen in the ED earlier today for these sx's, diagnosed with hydrosalpinx via US. Tx for possible tubo-ovarian abscess with rocephin, doxy, flagyl. Reports her pain was improved with Toradol in the ED earlier today, however she reports worsening pain in her R lower abdomen tonight. Tried ibuprofen at home w/o improvement. Reports nausea, chills, subjective fever. Returned to the ED. <JOSÉ MANUEL Mckeon Last Filed: 07/20/25 02:42> Related Data Home medications: Home Medications ?Medication ?Instructions ?Recorded ?Confirmed ?Last Taken ?Type levothyroxine 88 mcg tablet 88 mcg PO DAILY 04/20/21 04/24/21 04/24/21 History <JOSÉ MANUEL Mckeon Filed: 07/20/25 02:42> Allergies/adverse reactions: Allergies Allergy/AdvReac Type Severity Reaction Status Date / Time cephalexin (From Keflex) Allergy Intermediate Redness of Verified 07/19/25 22:51 Skin clarithromycin Allergy Mild Rash Verified 07/19/25 08:44 <Deirdre Simeon PA-C - Last Filed: 07/20/25 02:42> Review of Systems Review of Systems: All systems reviewed & are unremarkable except as noted in HPI. <Deirdre Simeon PA-C - Last Filed: 07/20/25 02:42> All systems reviewed & are unremarkable except as noted in HPI and below <Deirdre Simeon PA-C - Last Filed: 07/20/25 02:42> [facility] Past Medical History Medical History: Medical History Smoker Hypothyroidism Obesity <Deirdre Simeon PA-C - Last Filed: 07/20/25 02:42> Surgical History Surgical History: Surgical History History of section <Deirdre Simeon PA-C - Last Filed: 07/20/25 02:42> Social History Social History: Social History Smoking packs per day: 0.5 Smoking cigarettes per day: 10.0 Years smoked: 20 Smoking pack-years: 10.00 Smoking status: Current every day smoker Alcohol use details: 1 PER MONTH Substance use: never Living arrangements: with family <Deirdre Simeon PA-C - Last Filed: 07/20/25 02:42> Exam Narrative: GENERAL: Well appearing, well-nourished, non-toxic, in no acute distress. HEAD: Normocephalic, atraumatic. RESPIRATORY: Airway patent, respirations nonlabored. Clear to auscultation bilaterally, no rales, rhonchi, wheezing. CARDIOVASCULAR: Tachycardic with regular rhythm without murmurs, rubs, or gallops. ABDOMINAL: Soft, mild diffuse tenderness throughout abdomen, worst throughout lower abdomen, no rebound, nondistended. Normoactive BS. MUSCULOSKELETAL: Moves all extremities. No gross deformities. SKIN: Warm, dry, normal color. NEURO: A&O X3. Speech clear. Cranial nerves II-XII grossly intact. Steady gait. No ataxic movements. PSYCHIATRIC: Appropriate mood and affect. Normal interaction. <Deirdre Simeon PA-C - Last Filed: 07/20/25 02:42> Course HAND MOLDER/PA Physician Supervision This visit was performed by both a physician and an APC. I performed all aspects of the MDM as documented. <Francis Lucero MD - Last Filed: 07/20/25 04:55> Vital Signs Vital signs: Vital Signs Temperature 37.3 C 07/19/25 21:35 Pulse Rate 104 H 07/19/25 21:35 Respiratory Rate 21 H 07/19/25 21:35 Blood Pressure 135/84 07/19/25 21:35 Pulse Oximetry 99 07/19/25 21:35 Oxygen Delivery Room Air 07/19/25 21:35 Temperature 36.9 C 07/20/25 04:15 Pulse Rate 103 H 07/20/25 04:15 Respiratory Rate 18 07/20/25 04:15 Blood Pressure 95/71 L 07/20/25 04:15 Pulse Oximetry 97 07/20/25 04:15 Oxygen Delivery Room Air 07/19/25 21:35 <Deirdre Simeon PA-C - Last Filed: 07/20/25 02:42> Vital Signs Temperature 37.3 C 07/19/25 21:35 Pulse Rate 104 H 07/19/25 21:35 Respiratory Rate 21 H 07/19/25 21:35 Blood Pressure 135/84 07/19/25 21:35 Pulse Oximetry 99 07/19/25 21:35 Oxygen Delivery Room Air 07/19/25 21:35 Temperature 36.9 C 07/20/25 04:15 Pulse Rate 103 H 07/20/25 04:15 Respiratory Rate 18 07/20/25 04:15 Blood Pressure 95/71 L 07/20/25 04:15 Pulse Oximetry 97 07/20/25 04:15 Oxygen Delivery Room Air 07/19/25 21:35 <Francis Lucero MD - Last Filed: 07/20/25 04:55> Medical Decision Making MDM Narrative Medical decision making narrative: Patient presented to ED with worsening pain, nausea, subjective fever/chills. Diagnosed with hydrosalpinx today, started on antibiotics. Patient tachycardic, borderline febrile upon arrival here this evening. Pain control ordered. Laboratory studies reviewed from earlier today. Leukocytosis of 11.1. CMP unremarkable. Will obtain repeat labs. Lactic acid WNL today at 1.1. Blood cultures ordered. IV abx will be started. Patient did develop a fever and has been persistently tachycardic in the ED despite 2 L fluid resuscitation (approx 30cc/kg fluid bolus). Meeting sepsis criteria. CT scan of the abdomen/pelvis was obtained today - showing 4cm complex cystic structure in R adnexa, cannot exclude tubo-ovarian abscess. Consistent with clinical picture. Discussed case with Dr. Gaming OBJANESSA, agrees w/ plan for admission/IV abx, pain control. Patient is in agreement with plan and need for admission. <Deirdre Simeon PA-C - Last Filed: 07/20/25 02:42> Medical Records Medical records reviewed: Yes I reviewed the external patient's medical records. <Deirdre Simeon PA-C - Last Filed: 07/20/25 02:42> Vital Signs Vital Signs: Vital Signs Temperature 37.3 C 07/19/25 21:35 Pulse Rate 104 H 07/19/25 21:35 Respiratory Rate 21 H 07/19/25 21:35 Blood Pressure 135/84 07/19/25 21:35 Pulse Oximetry 99 07/19/25 21:35 Oxygen Delivery Room Air 07/19/25 21:35 Temperature 36.9 C 07/20/25 04:15 Pulse Rate 103 H 07/20/25 04:15 Respiratory Rate 18 07/20/25 04:15 Blood Pressure 95/71 L 07/20/25 04:15 Pulse Oximetry 97 07/20/25 04:15 Oxygen Delivery Room Air 07/19/25 21:35 <Deirdre Simeon PA-C - Last Filed: 07/20/25 02:42> Vital Signs Temperature 37.3 C 07/19/25 21:35 Pulse Rate 104 H 07/19/25 21:35 Respiratory Rate 21 H 07/19/25 21:35 Blood Pressure 135/84 07/19/25 21:35 Pulse Oximetry 99 07/19/25 21:35 Oxygen Delivery Room Air 07/19/25 21:35 Temperature 36.9 C 07/20/25 04:15 Pulse Rate 103 H 07/20/25 04:15 Respiratory Rate 18 07/20/25 04:15 Blood Pressure 95/71 L 07/20/25 04:15 Pulse Oximetry 97 07/20/25 04:15 Oxygen Delivery Room Air 07/19/25 21:35 <Francis Lucero MD - Last Filed: 07/20/25 04:55> Lab Data Lab results reviewed: Yes I reviewed the patient's lab results. <Deirdre Simeon PA-C - Last Filed: 07/20/25 02:42> Labs: Lab Results 07/19/25 Range/Units 22:44 Lactic Acid 1.1 (0.7-2.0) mmol/L <Deirdre Simeon PA-C - Last Filed: 07/20/25 02:42> Lab Results 07/19/25 Range/Units 22:44 Lactic Acid 1.1 (0.7-2.0) mmol/L <Francis Lucero MD - Last Filed: 07/20/25 04:55> Imaging Data Attestation: I personally reviewed and interpreted this imaging study as follows: <Deirdre Simeon PA-C - Last Filed: 07/20/25 02:42> Radiologist's impression: STAT RAD CT abd/pelvis: Impression: Fatty infiltration of the liver. Gallstones. Heterogeneous appearance of the uterus with probable hydrosalpinx versus pyosalpinx on the right. There is complex cystic structure in the right adnexa measuring 4 cm. Tubo-ovarian abscess cannot be excluded. Small amount of free fluid in the pelvis. No incidental findings. <Deirdre Simeon PA-C - Last Filed: 07/20/25 02:42> Critical Care Time Critical Care Time Critical Care Time: Yes <Francis Lucero MD - Last Filed: 07/20/25 04:55> Total Critical Care Time: 35 <Francis Lucero MD - Last Filed: 07/20/25 04:55> Discharge Plan Discharge Clinical Impression: Right tubo-ovarian abscess Sepsis Qualifiers: Sepsis type: sepsis due to unspecified organism Sepsis acute organ dysfunction status: unspecified Qualified Code(s): A41.9 - Sepsis, unspecified organism <Deirdre Simeon PA-C - Last Filed: 07/20/25 02:42> Patient Disposition: Still a Patient <Deirdre Simeon PA-C - Last Filed: 07/20/25 02:42> Condition: Stable <JOSÉ MANUEL Mckeon Last Filed: 07/20/25 02:42>
[2025-07-19 22:23] VITALS: BP 132/72; PULSE 107; RESP 20; TEMP 37.3; O2SAT 98
[2025-07-19] MEDS: HYDROmorphone HCL INJ (*CRX) 1 MG/ML SYR 0.5 MG IV PUSH (22:46)
[2025-07-19] MEDS: ONDANSETRON INJ 4 MG/2 ML VIAL IV PUSH (22:46)
[2025-07-19] MEDS: SODIUM CHLORIDE 0.9% IV 1,000 ML 999 ML IV CONT (22:47)
[2025-07-19 23:32] VITALS: BP 124/71; PULSE 116; RESP 17; O2SAT 96
[2025-07-19 23:45] VITALS: BP 135/65; PULSE 113; RESP 13; O2SAT 97
[2025-07-20] VITALS (12 sets, daily range): BP systolic 95–127; BP diastolic 56–76; PULSE 94–114; RESP 14–18; TEMP 36.8–38.2; O2SAT 93–97; BMI 29.9
[2025-07-20] MEDS: SODIUM CHLORIDE 0.9% IV 1,000 ML 999 ML IV CONT (00:20)
[2025-07-20] MEDS: HYDROmorphone HCL INJ (*CRX) 1 MG/ML SYR 0.5 MG IV PUSH ×4 (00:52→10:48)
[2025-07-20] MEDS: ACETAMINOPHEN 500 MG TABLET 1000 MG PO ×2 (01:01→14:33)
[2025-07-20] MEDS: cefTRIAXone 1 GM in SODIUM CHLORIDE 0.9% IV 50 ML 100 ML IVPB (04:18)
--- NOTE | 2025-07-20 04:44 | ADMGEN ---
This patient, Deirdre Valdes, was admitted to Medical Room 249-01. Patient/family oriented to hospital policies and general routines including ID bracelet, bed and alarms, visiting hours, pain management, procedures, bathroom and other care routines, personal items, smoking policy, room service/diet, and visiting hours. Information on how to activate the Rapid Response Team has been discussed. Patient/Family are encouraged to report perceived risks to care and to ask questions if they do not understand what they are told or what they should do.
[2025-07-20 05:31] LABS: Hematocrit 29.7 % (37.0-47.0); Hemoglobin 8.8 g/dL (12.0-15.0); Immature Granulocyte Percent A 0.5 % (0-0.5); Lymphocytes Absolute Auto 1.36 K/mm3 (0.9-3.2); Mean Corpuscular HGB Conc 29.6 g/dl (32-36); Mean Corpuscular Hemoglobin 19.8 pg (26-34); Mean Corpuscular Volume 66.9 fl (80-100); Nucleated Red Blood Cells Absolute Auto 0.000 K/mm3 (0.0-0.012); Nucleated Red Blood Cells Perc 0.0 % (0.0-0.2); Platelet Count Result 306 k/mm3 (150-375); Red Blood Count 4.44 M/mm3 (4.2-5.4); White Blood Count 11.0 K/mm3 (4.5-10.0)
[2025-07-20 05:43] LABS: Anion Gap 6 mmol/L (4-12); Blood Urea Nitrogen 9 mg/dL (7-17); Calcium 8.0 mg/dL (8.4-10.2); Carbon Dioxide 18 mmol/L (22-30); Chloride 109 mmol/L (98-107); Estimated CRCL calculation 88 ml/min; Estimated Glomerular Filt Rate > 60; Glucose 117 mg/dL (65-110); Potassium 4.0 mmol/L (3.4-5.0); Sodium 133 mmol/L (137-145)
[2025-07-20] MEDS: SODIUM CHLORIDE 0.9% IV 1,000 ML 100 ML IV CONT (05:54)
[2025-07-20] MEDS: ONDANSETRON INJ 4 MG/2 ML VIAL IV PUSH ×3 (08:10→21:33)
--- NOTE | 2025-07-20 08:54 | PM.IMHP ---
H&P: HPI History of Present Illness Date/Time: 07/20/25 08:54 Chief Complaint: pelvic pain Narrative: Patient is a 39-year-old presented to the ER after increasing abdominal pain. She was seen previously and treated outpatient therapy for PID. She returned later with increasing pain. her initial ultrasound showed hydrosalpinx versus pyosalpinx. She returned to ED, CT showed Right hydrosalpinx and/or pyosalpinx. Developing tubo-ovarian abscess not excluded. she did have a fever in the ER and mild tachycardia. She did have her period last week. She does have a history of heavy periods she denies any history of STD. She has been treated for endometritis 10 years ago. She does have a history of pelvic adhesive disease per op report in 2020. Review of Systems Review of Systems: All systems reviewed & are unremarkable except as noted in HPI and below Cardiovascular: Cardiovascular: Reports no additional cardiovascular complaints, Denies chest pain and Denies dyspnea Respiratory: Respiratory: Reports no additional respiratory complaints and Denies dyspnea Gastrointestinal: Gastrointestinal: Reports abdominal pain, Denies change in bowel habits, Denies diarrhea, Denies nausea and Denies vomiting Genitourinary: Genitourinary: Reports pelvic pain Integumentary/Breasts: Skin/Breast: Reports system reviewed and no additional complaints, except as docu Neurologic: Reports system reviewed and no additional complaints, except as documented PMFSH Past Medical History Medical History Smoker Hypothyroidism Obesity Surgical History Surgical History History of section Social History Social History Smoking packs per day: 1 Smoking cigarettes per day: 20.0 Years smoked: 20 Smoking pack-years: 20.00 Smoking status: Current every day smoker Tobacco type: cigarettes Alcohol intake: current Alcohol use details: 1 PER MONTH Substance use: never Substance use type: does not use Lack of Transportation: No Lack of Food: Never True Current Housing: I Have Housing Concerned About Future Housing: No Difficulty Paying Gas/Electric Bills: No Difficulty Paying for Meds: No Currently Unemployed: No Education: Trade/Vocational Certificate Difficulty w/ Childcare or Family Care: No Living arrangements: with family Spiritual care concerns: No Meds Home Medications and Allergies Home Medications ?Medication ?Instructions ?Recorded ?Confirmed ?Type levothyroxine 88 mcg tablet 88 mcg PO DAILY 04/20/21 04/24/21 History clindamycin HCl 300 mg capsule 300 mg PO Q8H #21 caps 01/03/23 Rx sulfamethoxazole 800 1 tablet PO Q12H 7 days #14 tabs 04/09/23 Rx mg-trimethoprim 160 mg tablet (Bactrim DS) clindamycin HCl 300 mg capsule 300 mg PO Q8H #21 caps 04/24/23 Rx dicyclomine 20 mg tablet 20 mg PO TID PRN abdominal pain 04/30/24 Rx #30 tabs ondansetron 4 mg disintegrating 4 mg PO Q8H PRN nausea and 04/30/24 Rx tablet vomiting #10 tabs doxycycline hyclate 100 mg capsule 100 mg PO BID 14 days #28 caps 07/19/25 Rx metronidazole 500 mg tablet 500 mg PO Q12H 14 days #28 tabs 07/19/25 Rx levothyroxine 150 mcg tablet 150 mcg PO DAILY@0630 07/20/25 07/20/25 History Allergies Allergy/AdvReac Type Severity Reaction Status Date / Time cephalexin (From Tunespeak) Allergy Intermediate Redness of Verified 07/19/25 22:51 Skin clarithromycin Allergy Mild Rash Verified 07/19/25 08:44 Vital Signs Vital Signs - 24 hr 07/19/25 21:35 07/19/25 21:54 07/19/25 22:23 Temperature 99.2 F 99.1 F Pulse Rate 104 H 102 H 107 H Respiratory Rate 21 H 13 20 Blood Pressure 135/84 141/72 H 132/72 Pulse Oximetry 99 98 98 Oxygen Delivery Room Air 07/19/25 23:32 07/19/25 23:45 07/20/25 00:51 Temperature 100.8 F H Pulse Rate 116 H 113 H 114 H Respiratory Rate 17 13 16 Blood Pressure 124/71 135/65 126/76 Pulse Oximetry 96 97 97 Oxygen Delivery 07/20/25 04:15 07/20/25 05:09 07/20/25 07:50 Temperature 98.5 F 98.3 F Pulse Rate 103 H 103 H 110 H Respiratory Rate 18 18 14 Blood Pressure 95/71 L 111/62 Pulse Oximetry 97 97 97 Oxygen Delivery Room Air 07/20/25 08:00 Temperature Pulse Rate 110 H Respiratory Rate Blood Pressure Pulse Oximetry Oxygen Delivery Exam Const: Orientation/consciousness: oriented to person and oriented to place HENMT: Head: normal to inspection Eyes: General: appearance normal, both eyes and all related structures Resp: Effort & Inspection: normal respiratory effort GI: Other: lower quad tenderness right>left, no rebound Neuro: General: oriented to person and oriented to place Cognition (Neuro): normal cognition Extrem: General: normal to inspection Psych: Appearance: grossly normal and well kempt H&P: Results Labs Labs: Short CBC 07/20/25 Range/Units 05:00 WBC 11.0 H (4.5-10.0) K/mm3 Hgb 8.8 L (12.0-15.0) g/dL Hct 29.7 L (37.0-47.0) % Plt Count 306 (150-375) k/mm3 [facility] 07/20/25 05:00 Sodium 133 L Potassium 4.0 Chloride 109 H Carbon Dioxide 18 L BUN 9 Creatinine 0.81 Glucose 117 H Calcium 8.0 L Assessment and Plan Assessment and plan (1) Right tubo-ovarian abscess: Code(s): N70.93 - Salpingitis and oophoritis, unspecified Status: Acute Assessment and Plan: No signs of rupture. Failed outpatient management. Admit. IV antibiotics. Analgesia. (2) Anemia: Code(s): D64.9 - Anemia, unspecified Status: Acute Assessment and Plan: Iron infusion.
--- NOTE | 2025-07-20 08:57 | PM.GYNPNOP ---
LOCAL COMBINATION TRUCK DRIVER - A/P Time Spent With Patient Time: Total time spent is greater than 50% in coordination of care (as documented) at patient's floor/unit and/or counseling patient: LOCAL COMBINATION TRUCK DRIVER- PN:Damion Post-Op Subjective Date/time seen: 07/20/25 08:57 LOCAL COMBINATION TRUCK DRIVER - PN: Obj Data Vital Signs Vital Signs: Vital Signs - 24 hr 07/19/25 21:35 07/19/25 21:54 07/19/25 22:23 Temperature 99.2 F 99.1 F Pulse Rate 104 H 102 H 107 H Respiratory Rate 21 H 13 20 Blood Pressure 135/84 141/72 H 132/72 Pulse Oximetry 99 98 98 Oxygen Delivery Room Air 07/19/25 23:32 07/19/25 23:45 07/20/25 00:51 Temperature 100.8 F H Pulse Rate 116 H 113 H 114 H Respiratory Rate 17 13 16 Blood Pressure 124/71 135/65 126/76 Pulse Oximetry 96 97 97 Oxygen Delivery 07/20/25 04:15 07/20/25 05:09 07/20/25 07:50 Temperature 98.5 F 98.3 F Pulse Rate 103 H 103 H 110 H Respiratory Rate 18 18 14 Blood Pressure 95/71 L 111/62 Pulse Oximetry 97 97 97 Oxygen Delivery Room Air 07/20/25 08:00 Temperature Pulse Rate 110 H Respiratory Rate Blood Pressure Pulse Oximetry Oxygen Delivery Intake/Output Intake/Output: Intake & Output 07/17/25 07/18/25 07/19/25 07/20/25 23:59 23:59 23:59 23:59 Intake Total 1999 Balance 1999 Meds/Results Medications: Active Medications Generic Name Dose Route Start Last Admin Trade Name Freq PRN Reason Stop Dose Admin Acetaminophen 1,000 mg 07/20/25 02:33 Acetaminophen 500 Mg Tablet PO Q6H PRN Mild Pain (1-3) or Fever Hydromorphone HCl 0.5 mg 07/20/25 02:33 07/20/25 08:10 Hydromorphone Hcl Inj (*Crx) 1 Mg/Ml Syr IV PUSH 0.5 mg Q3H PRN Administration Pain Rated 7-10 Ceftriaxone Sodium 1 gm/ 50 mls @ 100 mls/hr 07/21/25 04:00 Sodium Chloride IVPB Q24H KUSHAL Doxycycline Hyclate 100 mg/ 100 mls @ 100 mls/hr 07/20/25 09:00 Sodium Chloride IVPB Q12H KUSHAL Metronidazole 500 mg in 100 mls @ 100 mls/hr 07/20/25 08:00 Flagyl 500 Mg/Iso Soln 100 Ml IVPB Q8HR KUSHAL Sodium Chloride 1,000 mls @ 100 mls/hr 07/20/25 02:35 07/20/25 05:54 Normal Saline Iv IV CONT 100 mls/hr .Q10H KUSHAL Administration Ondansetron HCl 4 mg 07/20/25 02:33 07/20/25 08:10 Ondansetron Inj 4 Mg/2 Ml Vial IV PUSH 4 mg Q4H PRN Administration Nausea Radiology Results: ITS Impressions Abdomen/Pelvis CT 07/20/25 07:42 IMPRESSION: 1. Right hydrosalpinx and/or pyosalpinx. Developing tubo-ovarian abscess not excluded. Labs 07/20/25 05:00 07/20/25 05:00 Labs: Laboratory Results - last 24 hr 07/19/25 07/20/25 22:44 05:00 WBC 11.0 H RBC 4.44 Hgb 8.8 L Hct 29.7 L MCV 66.9 L MCH 19.8 L MCHC 29.6 L RDW 18.3 H Plt Count 306 MPV 9.5 Immature Gran % (Auto) 0.5 Neut % (Auto) 81.9 H Lymph % (Auto) 12.3 L [place] % (Auto) 4.7 Eos % (Auto) 0.3 Baso % (Auto) 0.3 Lymph # (Auto) 1.36 Alexander # (Auto) 0.5 Eos # (Auto) 0.0 Baso # (Auto) 0.0 Abs Immat Gran (auto) 0.05 H Absolute Neuts (auto) 9.0 H Absolute Nucleated RBC 0.000 Nucleated RBC % 0.0 Sodium 133 L Potassium 4.0 Chloride 109 H Carbon Dioxide 18 L Anion Gap 6 BUN 9 Creatinine 0.81 Estim Creat Clear Calc 88 Estimated GFR > 60 Glucose 117 H Lactic Acid 1.1 Calcium 8.0 L
[2025-07-20] MEDS: metroNIDAZOLE 500 MG/ISO 100ML 500 MG/100 ML BAG 100 MG IVPB ×3 (10:49→22:23)
--- NOTE | 2025-07-20 11:11 | PM.GYNPNOP ---
COMMUNICATIONS SPECIALIST - A/P Assessment and plan (1) Right tubo-ovarian abscess: Code(s): N70.93 - Salpingitis and oophoritis, unspecified Status: Acute Assessment and Plan: Clinically improving. WBC decreasing. Will continue IV antibiotics today, if she continue to improve clinically then will discontinue IV in AM and start oral and anticipate discharge tomorrow afternoon. (2) Anemia: Code(s): D64.9 - Anemia, unspecified Status: Acute Assessment and Plan: Will start oral iron. CBC in am. (3) Shortness of breath: Code(s): R06.02 - Shortness of breath Status: Acute Assessment and Plan: Exam normal. Obtaining pulse ox. CTA ordered. Time Spent With Patient Time: Total time spent is greater than 50% in coordination of care (as documented) at patient's floor/unit and/or counseling patient: Time with patient: 15 - 25 minutes COMMUNICATIONS SPECIALIST- PN:Subj Post-Op Subjective Date/time seen: 07/20/25 11:11 Interval history: Pain improved, positive flatus, no leg pain. She c/o SOB pressure this am and with ambulating. She did start a light period last night. Review of Systems Review of Systems: All systems reviewed & are unremarkable except as noted in HPI and below Constitutional: Constitutional: Reports no additional constitutional complaints Cardiovascular: Cardiovascular: Reports no additional cardiovascular complaints Respiratory: Respiratory: Reports as per HPI Gastrointestinal: Gastrointestinal: Reports as per HPI Genitourinary: Genitourinary: Reports as per HPI Musculoskeletal: Musculoskeletal: Reports no additional musculoskeletal complaints Psychiatric: Psychiatric: Reports no additional psychiatric complaints Endocrine: Endocrine: Reports no additional endocrine complaints Exam Const: General: no acute distress HENMT: Head: normal to inspection Resp: Effort & Inspection: normal respiratory effort Auscultation: clear to auscultation bilaterally Cardio: Rate: regular rate Rhythm: regular rhythm GI: Inspection: normal to inspection Other: soft no rebound no guarding tender lower abd, less than prior exam hypoactive BS Neuro: General: patient oriented x3 Extrem: General: normal to inspection and no calf tenderness Psych: Appearance: grossly normal COMMUNICATIONS SPECIALIST - PN: Obj Data Vital Signs Vital Signs: Vital Signs - 24 hr 07/19/25 21:35 07/19/25 21:54 07/19/25 22:23 Temperature 99.2 F 99.1 F Pulse Rate 104 H 102 H 107 H Respiratory Rate 21 H 13 20 Blood Pressure 135/84 141/72 H 132/72 Pulse Oximetry 99 98 98 Oxygen Delivery Room Air 07/19/25 23:32 07/19/25 23:45 07/20/25 00:51 Temperature 100.8 F H Pulse Rate 116 H 113 H 114 H Respiratory Rate 17 13 16 Blood Pressure 124/71 135/65 126/76 Pulse Oximetry 96 97 97 Oxygen Delivery 07/20/25 04:15 07/20/25 05:09 07/20/25 07:50 Temperature 98.5 F 98.3 F Pulse Rate 103 H 103 H 110 H Respiratory Rate 18 18 14 Blood Pressure 95/71 L 111/62 Pulse Oximetry 97 97 97 Oxygen Delivery Room Air 07/20/25 08:00 Temperature Pulse Rate 110 H Respiratory Rate Blood Pressure Pulse Oximetry Oxygen Delivery Intake/Output Intake/Output: Intake & Output 07/17/25 07/18/25 07/19/25 07/20/25 23:59 23:59 23:59 23:59 Intake Total 1999 Balance 1999 Meds/Results Medications: Active Medications Generic Name Dose Route Start Last Admin Trade Name Freq PRN Reason Stop Dose Admin Acetaminophen 1,000 mg 07/20/25 02:33 Acetaminophen 500 Mg Tablet PO Q6H PRN Mild Pain (1-3) or Fever Hydrocodone Bitart/Acetaminophen 1 tab 07/20/25 10:44 Hydrocodone/Acetaminophen (*Crx) 5-325 Mg Tablet PO Q4H PRN Pain Rated 4-6 Doxycycline Hyclate 100 mg/ 100 mls @ 100 mls/hr 07/20/25 09:00 Sodium Chloride IVPB Q12H KUSHAL Metronidazole 500 mg in 100 mls @ 100 mls/hr 07/20/25 08:00 07/20/25 10:49 Flagyl 500 Mg/Iso Soln 100 Ml IVPB 100 mls/hr Q8HR KUSHAL Administration Sodium Chloride 1,000 mls @ 100 mls/hr 07/20/25 02:35 07/20/25 05:54 Normal Saline Iv IV CONT 100 mls/hr .Q10H KUSHAL Administration Piperacillin Sod/Tazobactam 50 mls @ 100 mls/hr 07/20/25 11:00 Sod 3.375 gm/ Sodium Chloride IVPB Q6H KUSHAL Iron Sucrose 400 mg/ Sodium 270 mls @ 108 mls/hr 07/20/25 12:00 Chloride IVPB 07/20/25 14:29 ONCE ONE Ondansetron HCl 4 mg 07/20/25 02:33 07/20/25 08:10 Ondansetron Inj 4 Mg/2 Ml Vial IV PUSH 4 mg Q4H PRN Administration Nausea Polyethylene Glycol 17 gm 07/21/25 09:00 Polyethylene Glycol 3350 17 Gm Powd.Pack PO QAM KUSHAL Simethicone 80 mg 07/20/25 13:00 Simethicone 80 Mg Tab.Chew PO QID KUSHAL Zolpidem Tartrate 5 mg 07/20/25 10:46 Zolpidem Tartrate (*Crx) 5 Mg Tablet PO HS PRN Insomnia Radiology Results: ITS Impressions Abdomen/Pelvis CT 07/20/25 07:42 IMPRESSION: 1. Right hydrosalpinx and/or pyosalpinx. Developing tubo-ovarian abscess not excluded. Labs 07/20/25 12:04 07/20/25 05:00 Labs: Laboratory Results - last 24 hr 07/19/25 07/20/25 22:44 05:00 WBC 11.0 H RBC 4.44 Hgb 8.8 L Hct 29.7 L MCV 66.9 L MCH 19.8 L MCHC 29.6 L RDW 18.3 H Plt Count 306 MPV 9.5 Immature Gran % (Auto) 0.5 Neut % (Auto) 81.9 H Lymph % (Auto) 12.3 L [place] % (Auto) 4.7 Eos % (Auto) 0.3 Baso % (Auto) 0.3 Lymph # (Auto) 1.36 [place] # (Auto) 0.5 Eos # (Auto) 0.0 Baso # (Auto) 0.0 Abs Immat Gran (auto) 0.05 H Absolute Neuts (auto) 9.0 H Absolute Nucleated RBC 0.000 Nucleated RBC % 0.0 Sodium 133 L Potassium 4.0 Chloride 109 H Carbon Dioxide 18 L Anion Gap 6 BUN 9 Creatinine 0.81 Estim Creat Clear Calc 88 Estimated GFR > 60 Glucose 117 H Lactic Acid 1.1 Calcium 8.0 L
[2025-07-20 12:20] LABS: Hematocrit 28.8 % (37.0-47.0); Hemoglobin 8.6 g/dL (12.0-15.0); Immature Granulocyte Percent A 0.6 % (0-0.5); Lymphocytes Absolute Auto 1.44 K/mm3 (0.9-3.2); Mean Corpuscular HGB Conc 29.9 g/dl (32-36); Mean Corpuscular Hemoglobin 20.1 pg (26-34); Mean Corpuscular Volume 67.4 fl (80-100); Nucleated Red Blood Cells Absolute Auto 0.000 K/mm3 (0.0-0.012); Nucleated Red Blood Cells Perc 0.0 % (0.0-0.2); Platelet Count Result 288 k/mm3 (150-375); Red Blood Count 4.27 M/mm3 (4.2-5.4); White Blood Count 10.4 K/mm3 (4.5-10.0)
[2025-07-20] MEDS: DOXYCYCLINE IV 100 MG in SODIUM CHLORIDE 0.9% IV 100 ML IVPB ×2 (12:25→21:21)
[2025-07-20] MEDS: HYDROcodone/acetaminophen (*CRX) 5-325 MG TABLET 1 TAB PO (12:25)
[2025-07-20] MEDS: SIMETHICONE 80 MG TAB.CHEW PO ×3 (12:25→21:21)
[2025-07-20 12:45] LABS: Burr Cells Occasional; Hypochromasia 1+; Microcytosis 1+ (NORMAL); Polychromasia Occasional; Schistocytes None Seen
[2025-07-20] MEDS: PIPERACILLIN/TAZOBACTAM SOD 3.375 GM in SODIUM CHLORIDE 0.9% IV 50 ML 100 ML IVPB ×3 (13:35→23:32)
[2025-07-20] MEDS: NICOTINE (*PBKC) 21 MG PATCH 1 PATCH TRANSDERM (14:39)
[2025-07-20] MEDS: IRON SUCROSE COMPLEX 400 MG in SODIUM CHLORIDE 0.9% IV 250 ML 108 MG IVPB (15:22)
[2025-07-20] MEDS: KETOROLAC 30 MG/ML VIAL (*BKC) IV PUSH ×2 (15:26→21:22)
[2025-07-21] VITALS (9 sets, daily range): BP systolic 106–121; BP diastolic 59–85; PULSE 93–106; RESP 16–18; TEMP 36.6; O2SAT 97–100
--- NOTE | 2025-07-21 02:00 | PC.NURSE ---
Daylight Savings Time For Daylight Savings Time Ending in the Fall - Clocks are moved back. For Daylight Savings Time Beginning in the Spring - Clocks are moved ahead. For [facility], the time of change occurs at 0200 hrs. Time is taken from the field observer. This entry on the patient's chart recognizes the change in time reflected during documentation. Example: 2 entries for vital signs may be charted for 0200 hrs.
[2025-07-21] MEDS: KETOROLAC 30 MG/ML VIAL (*BKC) IV PUSH ×4 (02:42→22:53)
[2025-07-21] MEDS: PIPERACILLIN/TAZOBACTAM SOD 3.375 GM in SODIUM CHLORIDE 0.9% IV 50 ML 100 ML IVPB ×4 (05:31→23:01)
[2025-07-21] MEDS: ACETAMINOPHEN 500 MG TABLET 1000 MG PO ×2 (05:32→21:02)
[2025-07-21] MEDS: LEVOTHYROXINE SODIUM 150 MCG TABLET PO (06:00)
[2025-07-21] MEDS: metroNIDAZOLE 500 MG/ISO 100ML 500 MG/100 ML BAG 100 MG IVPB ×3 (06:00→21:49)
--- NOTE | 2025-07-21 09:00 | P.DS_ITS ---
DS: Admitting Diagnosis Discharge Date 07/22/25 Admitting Diagnosis Tubovarian abscess DS: Discharge Diagnosis Discharge Diagnosis (1) Right tubo-ovarian abscess: Code(s): N70.93 - Salpingitis and oophoritis, unspecified Status: Acute (2) Anemia: Code(s): D64.9 - Anemia, unspecified Status: Acute DS: Summary Hospital Course Reason for hospitalization: Abdominal pain possible TOA Hospital Course: She was admitted for IV antibiotics after increasing pain with oral antibiotics. Admitted. IV antibiotics started. Clinically improved. WBC decreased, pain improved. She had SOB on 07/21 with ambulating. CTA ordered. CTA neg. She had anemia on admission. Hemodynamicly stable. Has a history of menorrhagia. Received iron infusion and oral iron. She tolerated oral antibiotics and no increase pain. Discharged to home on oral antibiotics. Status at Discharge Functional status at discharge: independent ambulation Time Spent with Patient Time attestation: Total time spent providing and/or coordinating discharge services: Exam Const: General: comfortable HENMT: Head: normal to inspection Eyes: General: appearance normal, both eyes and all related structures Resp: Effort & Inspection: normal respiratory effort Cardio: Rate: regular rate GI: Inspection: normal to inspection Other: decreasing lower abdominal tenderness no guarding or rebound Neuro: General: patient oriented x3 Extrem: General: normal to inspection and no calf tenderness Psych: Appearance: grossly normal DS: Data Data Completed and Pending Labs on day of discharge: Labs from last 24 hours 07/20/25 12:04 WBC 10.4 H RBC 4.27 Hgb 8.6 L Hct 28.8 L MCV 67.4 L MCH 20.1 L MCHC 29.9 L RDW 18.7 H Plt Count 288 MPV 9.0 Immature Gran % (Auto) 0.6 H Neut % (Auto) 81.2 H Lymph % (Auto) 13.9 L [place] % (Auto) 3.9 Eos % (Auto) 0.1 Baso % (Auto) 0.3 Lymph # (Auto) 1.44 [place] # (Auto) 0.4 Eos # (Auto) 0.0 Baso # (Auto) 0.0 Abs Immat Gran (auto) 0.06 H Absolute Neuts (auto) 8.4 H Absolute Nucleated RBC 0.000 Band Neutrophils % Not Reportable Nucleated RBC % 0.0 Platelet Estimate Adequate Polychromasia Occasional Hypochromasia 1+ Microcytosis 1+ Alesia Cells Occasional Schistocytes None seen Discharge Plan Discharge Attending physician on discharge: Chad Gaming Discharging Clinician: Chad Gaming Patient Disposition: Home Activity: may shower and pelvic rest Diet: regular Discharge Instructions: May return to work on , 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 No vigorous or strenuous activity. Pelvic rest. Patient Instructions: Antibiotic Form Patient Language: Kuwaiti Stand Alone Forms: General Discharge Information Follow-up/Referrals: Chad Gaming MD [Physician, ARTIFICIAL BREEDING TECHNICIAN] - 2 Weeks Referral Note: call for appointment Discharge Medications: New oxycodone 5 mg Tablet 5 mg PO Q4H PRN (Reason: Pain Rated 7-10) Qty: 10 0RF nicotine [Nicoderm CQ] 21 mg/24 hr Patch 24 Hour 1 patch transdermal DAILY PRN (Reason: nicotene withdrawal symptoms) Qty: 28 0RF ferrous sulfate 325 mg (65 mg iron) Tablet,Delayed Release (Dr/Ec) 325 mg PO TID Qty: 60 0RF metronidazole 500 mg Tablet 500 mg PO Q8HR Qty: 42 0RF nicotine 21 mg/24 hr patch 24 hour 1 patch transdermal DAILY Qty: 28 0RF docusate sodium 100 mg Capsule 100 mg PO Q12HR Qty: 30 0RF doxycycline hyclate 100 mg Tablet 100 mg PO Q12HR Qty: 28 0RF No Action levothyroxine 150 mcg tablet 150 mcg PO DAILY@0630 Date of admission: 07/20/25 02:34 Primary Care Provider: PHYSICIAN NOT ON STAFF,NONSTAFF Admitting Provider: Chad Gaming Attending physician on admission: Chad Gaming Condition: Stable
[2025-07-21] MEDS: NICOTINE (*PBKC) 21 MG PATCH 1 PATCH TRANSDERM (09:32)
[2025-07-21] MEDS: DOXYCYCLINE IV 100 MG in SODIUM CHLORIDE 0.9% IV 100 ML IVPB ×2 (09:34→20:57)
[2025-07-21] MEDS: SIMETHICONE 80 MG TAB.CHEW PO ×4 (09:37→20:57)
[2025-07-21] MEDS: FERROUS SULFATE 325 MG TABLET PO ×3 (09:50→16:51)
[2025-07-21] MEDS: DOCUSATE SODIUM 100 MG CAPSULE PO (09:50)
[2025-07-22] VITALS: PULSE 79
[2025-07-22 04:00] VITALS: PULSE 73
[2025-07-22] MEDS: PIPERACILLIN/TAZOBACTAM SOD 3.375 GM in SODIUM CHLORIDE 0.9% IV 50 ML 100 ML IVPB (05:03)
[2025-07-22 05:37] VITALS: BP 115/59; PULSE 82; RESP 17; TEMP 36.6; O2SAT 97
[2025-07-22] MEDS: LEVOTHYROXINE SODIUM 150 MCG TABLET PO (05:38)
[2025-07-22] MEDS: metroNIDAZOLE 500 MG/ISO 100ML 500 MG/100 ML BAG 100 MG IVPB (05:39)
[2025-07-22 07:31] LABS: Hematocrit 28.1 % (37.0-47.0); Hemoglobin 8.1 g/dL (12.0-15.0); Immature Granulocyte Percent A 1.0 % (0-0.5); Lymphocytes Absolute Auto 1.41 K/mm3 (0.9-3.2); Mean Corpuscular HGB Conc 28.8 g/dl (32-36); Mean Corpuscular Hemoglobin 19.8 pg (26-34); Mean Corpuscular Volume 68.7 fl (80-100); Nucleated Red Blood Cells Absolute Auto 0.000 K/mm3 (0.0-0.012); Nucleated Red Blood Cells Perc 0.0 % (0.0-0.2); Platelet Count Result 251 k/mm3 (150-375); Red Blood Count 4.09 M/mm3 (4.2-5.4); White Blood Count 8.2 K/mm3 (4.5-10.0)
[2025-07-22 07:55] LABS: Anisocytosis 1+; Hypochromasia 1+; Microcytosis 2+ (NORMAL); Schistocytes None Seen
[2025-07-22 07:56] LABS: Ovalocytes 1+
[2025-07-22 07:57] LABS: Burr Cells Occasional
[2025-07-22] MEDS: SIMETHICONE 80 MG TAB.CHEW PO (09:16)
[2025-07-22] MEDS: DOXYCYCLINE HYCLATE 100 MG TABLET PO (09:16)
[2025-07-22] MEDS: DOCUSATE SODIUM 100 MG CAPSULE PO (09:16)
[2025-07-22] MEDS: FERROUS SULFATE 325 MG TABLET PO (09:16)
[2025-07-22 09:31] VITALS: BP 116/66; PULSE 86; RESP 18; TEMP 36.9
--- NOTE | 2025-07-22 10:23 | PM.GYNPNOP ---
DIRECTOR BUSINESS INTEGRATION - A/P Assessment and plan (1) Right tubo-ovarian abscess: Code(s): N70.93 - Salpingitis and oophoritis, unspecified Status: Acute Assessment and Plan: Pain much improved. Oral antibiotics started this am. Will discharge to home on oral antibiotics. Reviewed follow up instructions. (2) Anemia: Code(s): D64.9 - Anemia, unspecified Status: Acute Assessment and Plan: Continue oral iron. Postoperative Procedures: Continue iron therapy. Time Spent With Patient Time: Total time spent is greater than 50% in coordination of care (as documented) at patient's floor/unit and/or counseling patient: Time with patient: less than 15 minutes DIRECTOR BUSINESS INTEGRATION- PN:Subj Post-Op Subjective Date/time seen: 07/22/25 10:23 Interval history: She states she feels better, mild tenderness, no pain with moving, tolerating reg food. She feels like having a yeast infection. Tolerated oral antibiotics this morning. She did have diarrhea this am. Declines Immodium. Ambulating and showered without problems. Subjective: patient reports feeling better Review of Systems Review of Systems: All systems reviewed & are unremarkable except as noted in HPI and below Exam Const: General: comfortable and no acute distress HENMT: Head: normal to inspection Eyes: General: appearance normal, both eyes and all related structures Resp: Effort & Inspection: normal respiratory effort GI: Other: soft, minimal tenderness, no guarding, soft Extrem: General: normal to inspection, no calf tenderness and no edema Psych: Appearance: grossly normal DIRECTOR BUSINESS INTEGRATION - PN: Obj Data Vital Signs Vital Signs: Vital Signs - 24 hr 07/21/25 12:00 07/21/25 14:00 07/21/25 16:00 Temperature 97.9 F Pulse Rate 99 96 93 Respiratory Rate 16 Blood Pressure 112/61 Pulse Oximetry 100 Oxygen Delivery 07/21/25 20:00 07/21/25 20:00 07/21/25 20:53 Temperature 97.9 F Pulse Rate 94 99 94 Respiratory Rate 18 18 Blood Pressure 121/59 L Pulse Oximetry 100 100 Oxygen Delivery Room Air 07/22/25 00:00 07/22/25 04:00 07/22/25 05:37 Temperature 97.8 F Pulse Rate 79 73 82 Respiratory Rate 17 Blood Pressure 115/59 L Pulse Oximetry 97 Oxygen Delivery 07/22/25 09:31 Temperature 98.5 F Pulse Rate 86 Respiratory Rate 18 Blood Pressure 116/66 Pulse Oximetry Oxygen Delivery Intake/Output Intake/Output: Intake & Output 07/19/25 07/20/25 07/21/25 07/22/25 23:59 23:59 22:59 23:59 Intake Total 4535 2290 490 Balance 4535 2290 490 Meds/Results Medications: Active Medications Generic Name Dose Route Start Last Admin Trade Name Freq PRN Reason Stop Dose Admin Acetaminophen 1,000 mg 07/20/25 14:02 07/21/25 21:02 Acetaminophen 500 Mg Tablet PO 1,000 mg Q6H PRN Administration Mild Pain (1-3) or Fever Docusate Sodium 100 mg 07/21/25 09:00 07/22/25 09:16 Docusate Sodium 100 Mg Capsule PO 100 mg Q12HR KUSHAL Administration Doxycycline Hyclate 100 mg 07/22/25 09:00 07/22/25 09:16 Doxycycline Hyclate 100 Mg Tablet PO 100 mg Q12HR KUSHAL Administration Ferrous Sulfate 325 mg 07/21/25 09:00 07/22/25 09:16 Ferrous Sulfate 325 Mg Tablet PO 325 mg TID KUSHAL Administration Fluconazole 150 mg 07/22/25 10:22 Fluconazole 150 Mg Tablet PO 07/22/25 10:23 ONCE ONE Ketorolac Tromethamine 30 mg 07/20/25 14:01 07/21/25 22:53 Ketorolac 30 Mg/Ml Vial (*Bkc) IV PUSH 30 mg Q6H PRN Administration Pain Rated 4-6 Levothyroxine Sodium 150 mcg 07/21/25 06:30 07/22/25 05:38 Levothyroxine Sodium 150 Mcg Tablet PO 150 mcg DAILY@0630 KUSHAL Administration Metronidazole 500 mg 07/22/25 14:00 Metronidazole 500 Mg Tablet PO Q8HR KUSHAL Nicotine 1 patch 07/20/25 11:19 07/21/25 09:32 Nicotine (*Pbkc) 21 Mg Patch TRANSDERM 1 patch DAILY PRN Administration nicotene withdrawal symptoms Ondansetron HCl 4 mg 07/20/25 02:33 07/20/25 21:33 Ondansetron Inj 4 Mg/2 Ml Vial IV PUSH 4 mg Q4H PRN Administration Nausea Oxycodone HCl 5 mg 07/20/25 14:02 Oxycodone Hcl (*Crx) 5 Mg Tab Ir PO Q4H PRN Pain Rated 7-10 Polyethylene Glycol 17 gm 07/21/25 09:00 07/22/25 09:22 Polyethylene Glycol 3350 17 Gm Powd.Pack PO Not Given QAM KUSHAL Simethicone 80 mg 07/20/25 13:00 07/22/25 09:16 Simethicone 80 Mg Tab.Chew PO 80 mg QID KUSHAL Administration Zolpidem Tartrate 5 mg 07/20/25 10:46 Zolpidem Tartrate (*Crx) 5 Mg Tablet PO HS PRN Insomnia Radiology Results: ITS Impressions Abdomen/Pelvis CT 07/20/25 07:42 IMPRESSION: 1. Right hydrosalpinx and/or pyosalpinx. Developing tubo-ovarian abscess not excluded. Chest CTA 07/21/25 10:12 IMPRESSION: 1. No PE. 2. Bibasilar airspace disease. Consider aspiration. 3. Minimally enlarged lymph nodes within ravi hepatis. Recommend surveillance. 4. Thyroid goiter. Labs 07/22/25 07:26 07/20/25 05:00 Labs: Laboratory Results - last 24 hr 07/22/25 07:26 WBC 8.2 RBC 4.09 L Hgb 8.1 L Hct 28.1 L MCV 68.7 L MCH 19.8 L MCHC 28.8 L RDW 19.3 H Plt Count 251 MPV 9.0 Immature Gran % (Auto) 1.0 H Neut % (Auto) 73.6 H Lymph % (Auto) 17.2 L [place] % (Auto) 6.7 Eos % (Auto) 1.1 Baso % (Auto) 0.4 Lymph # (Auto) 1.41 [place]aden # (Auto) 0.6 Eos # (Auto) 0.1 Baso # (Auto) 0.0 Abs Immat Gran (auto) 0.08 H Absolute Neuts (auto) 6.1 Absolute Nucleated RBC 0.000 Band Neutrophils % Not Reportable Nucleated RBC % 0.0 Platelet Estimate Adequate Hypochromasia 1+ Anisocytosis 1+ Microcytosis 2+ Ovalocytes 1+ [place] Cells Occasional Schistocytes None seen
[2025-07-22] MEDS: NICOTINE (*PBKC) 21 MG PATCH 1 PATCH TRANSDERM (10:26)
[2025-07-22] MEDS: FLUCONAZOLE 150 MG TABLET PO (10:38)
[2025-07-22 11:00] VITALS: PULSE 85
== END 2025-07-22 11:20 | disposition home or self-care (01) ==
LOC: ANHED 07-20 02:42 → ANH2MED 07-20 03:55
PROVIDERS: Admitting Provider Obstetrics & Gynecology; Emergency Provider Physician Assistant; Visit Provider Obstetrics & Gynecology
DX: N70.93 Salpingitis and oophoritis, unspecified (principal); R06.02 Shortness of breath; D64.9 Anemia, unspecified; E03.9 Hypothyroidism, unspecified; F17.210 Nicotine dependence, cigarettes, uncomplicated
CPT/HCPCS: 36415; 71275; 74177; 76830; 76856; 80048; 80053; 81001; 81025; 83605; 85025; 87040; 87086; 96361; 96365; 96366; 96367; 96372; 96374; 96375; 96376; 99285; A9270; G0378; J0696; J1171; J1756; J1836; J1885; J2003; J2405; J2543; J7030; J7050; Q9967

== ENCOUNTER 2025-07-23 14:21 | Emergency (ER) | payer BC, SELFPAY ==
[2025-07-23 14:26] VITALS: BP 123/76; PULSE 86; RESP 16; TEMP 36.8; O2SAT 98
--- OUTSIDE RECORDS SUMMARY | 2025-07-23 15:46 | XMS_ITS | Clinical Summary ---
Author Organization [facility] Address [address] [place] [address] Phone Care Team Providers Care Aircraft Assembler Name Role Phone Annabelle Robin APRN, FILLER IN Primary Care P rovider Allergies Active Allergy [...] = 0.6 oz pur e alcohol) OCCASIONALLY Document Security SystemsC Utilities Answer Date Recorded In the past [...] week 07/12/2024 How often do you attend [facility] ch or scientology services? Never 07/12/2024 Do you belong to any clubs o r organizations such as latter day groups, unions, fraternal or athletic groups, or [...] Total Score - Questions 1-9 0 06/20 [facility] [place] of Occupat ional Health - Occupational Stress [...] any time in the past 12 m [facility], were you homeless or living in a halfway (including now)? No 07/12/2024 Education Answer Date [...] (HPV) 03/16/2021 12:00 AM CDT PATHOLOGY CYTOLOGY PHYSICIAN ALLERGIST IMMUNOLOGIST 03/16/2021 12:00 AM CDT from Last 3 Months or Most Recently Relevant to Health Maintenance Results * HEPATITIS C ANTIBODY (03/16/2021 8:38 AM CDT) hepatitis C antibody 0.19 <1 S/CO [facility] [id number] B 03/16/2021 9:41 PM CDT [facility] Comment: Signal/Cutoff ratio < 0.79 is Nondetected Signal/Cutoff ratio 0.80-0.99 is Grayzone Signal/Cutoff ratio > 0.99 is Detected Supplemental assays are recommended if signal/cutoff ratio is >/=1.00. Signal/cutoff ratio result >/= 5.00 is 97% predictive of positivity for recombinant immunoblot assay (RIBA) and will be reported to the [place] Department of Public [facility] as required. Blood Venipuncture / Unknown 03/16/2021 8:38 AM CDT 03/16/2021 8:38 AM CDT Flo Rios PAC CHEMISTRY ORDERABLES Fin al Result [facility] [address] [place] [address], [place] * PATHOLOGY CYTOLOGY PHYSICIAN ALLERGIST IMMUNOLOGIST (03/16/2021 12:00 AM CDT) 03/16/2021 us Provider Scan PATHOLOGY/CYTOLOGY ORDERABLES Fi nal Result SCAN * HUMAN PAPILLOMA VIRUS (HPV) (03/16/2021 12:00 AM CDT) 03/16/2021 us Provider Scan LAB SEND OUTS Final Result SCAN from Last 3 Months or Most Recently Relevant to Health Maintenance Insurance [facility] Care Teams Aircraft Assembler Relationship Specialty Start Date End Date Annabelle Robin APRN, FILLER IN [address] [place] [address] PCP - General Advanced Practice Nurse 04/28/23
--- OUTSIDE RECORDS SUMMARY | 2025-07-23 15:46 | XMS_ITS | Encounter Summary ---
Author Organization [facility] Address [address] [place] [address] Phone Care Team Providers Care Spiritual Advisor Name Role Phone Annabelle Robin APRN, CNP Primary Care P rovider Reason for Visit * Reason Comments Medication Refill Encounter Details Date Type Department Care Team (Late st Contact Info) Description 02/18/2024 Refill [facility] - Primary Care - [place] [address] [place] [id number] Annabelle Robin APRN, CNP [address] [place] [address] Medication Refill Social History Tobacco [...] encounter Miscellaneous Notes * Telephone Encounter - HuAnnabelle jones APRN, CNP - 02/22/2024 11:09 AM CDT [...] 03/08/23 Office Visit Annabelle Robin APRN, CNP [facility] Showing recent visits within [...] 02/21/2024 8:11 AM CDT Attempted to contact [place] for yearly appt. No answer, left message. [...] documented as of this encounter Care Teams Spiritual Advisor Relationship Specialty Start Date End Date Annabelle Robin APRN, SENIOR VICE PRESIDENT AND CHIEF INFORMATION OFFICER [address] [place] [address] PCP - General Advanced Practice Nurse 04/28/23 documented as of this encounter
--- OUTSIDE RECORDS SUMMARY | 2025-07-23 15:46 | XMS_ITS | Encounter Summary ---
Author Organization [facility] Address [address] [place] [address] Phone Care Team Providers Care Employer Relations Representative Name Role Phone Annabelle Robin APRN, LASHA Primary Care P jerome Reason for Visit * Reason Comments Medication Refill Encounter Details Date Type Department Care Team (Late st Contact Info) Description 11/24/2023 Refill [facility] - Primary Care - [place] [address] [place] [address] Dayday Gifford, GIANCARLO [address] [place] [address] Medication Refill Social History Tobacco [...] Dept 03/08/23 Office Visit Annabelle Robin APRN, LASHA [facility] Showing recent visits within past 365 days and meeting all other requirements Future Appointments No visits were found meeting these conditions. 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 documented in this encounter Additional Health Concerns Infection Onset Date Last Indicated Resolved Time Respiratory Rule-Out 11/26/2023 11/26/2023 024 10:03 AM GRINDING WHEEL FACER COVID - 19 11/26/2023 11/26/2023 11/26/2023 10:0 2 AM GRINDING WHEEL FACER Influenza 11/26/2023 11/26/2023 12/03/2023 12:1 6 AM CDT Assessment Noted Time PHQ-9 Depression Total Score: 0 03/16/20 21 7:00 AM CDT documented as of this encounter Care Teams Employer Relations Representative Relationship Specialty Start Date End Date Annabelle Robin APRN, AUCTION ASSISTANT [address] [place] [address] PCP - General Advanced Practice Nurse 04/28/23 documented as of this encounter
--- OUTSIDE RECORDS SUMMARY | 2025-07-23 15:46 | XMS_ITS | Clinical Summary ---
Author Organization [facility] Address [address] [place] [address] Care Team Providers Care Partridge Farmer Name Role Phone Unavailable Primary Care Provider [...]
--- OUTSIDE RECORDS SUMMARY | 2025-07-23 15:47 | XMS_ITS | Encounter Summary ---
Author Organization [facility] Address [address] [place] [address] Phone Care Team Providers Care Business Technology Architect Name Role Phone Flo Rios Primary Care Provider U cruz Provider, None Primary Care Provider Annabelle Stearns APRN, ADMINISTRATIVE SUPPORT CLERK Primary Care P rovider Reason for Visit * Reason Comments Medication Refill Encounter Details Date Type Department Care Team (Late st Contact Info) Description 05/11/2021 Refill [facility] - Primary Care - [id number] [place] [address] Flo Rios PAC Medication Refill [...] Dept 04/15/21 Office Visit Flo Rios PAC [facility] 03/16/21 Office Visit Flo Rios PAC [facility] Showing recent visits within past 365 days and meeting all other requirements Future Appointments Date Type Provider Dept 05/19/21 Appointment Maximino, [facility] 07/20/21 Appointment Flo Rios PAC [facility] Showing future appointments within next [...] Dept 04/15/21 Office Visit Flo Rios PAC [facility] 03/16/21 Office Visit Flo Rios PAC [facility] Showing recent visits within past 182 days and meeting all other requirements Future Appointments Date Type Provider Dept 05/19/21 Appointment Maximino, Liu [facility] 07/20/21 Appointment Fol Rios PAC [facility] Showing future appointments within next [...] Respiratory Rule-Out 10/27/2023 10/27/2023 024 6:28 PM ELECTRON BEAM OPERATOR Respiratory Rule-Out 11/26/2023 11/26/2023 024 10:03 AM ELECTRON BEAM OPERATOR COVID - 19 11/26/2023 11/26/2023 11/26/2023 10:0 2 AM ELECTRON BEAM OPERATOR Influenza 11/26/2023 11/26/2023 12/03/2023 12:1 6 AM CDT Assessment Noted Time PHQ-9 Depression Total Score: 0 03/16/20 21 7:00 AM CDT documented as of this encounter Care Teams Business Technology Architect Relationship Specialty Start Date End Date Flo Rios PAC PCP - General Physician Major Assembly Inspector 03/16/21 06/30/22 Provider, None [place] PCP - General 07/01/22 04/27/23 Annabelle Robin APRN, ADMINISTRATIVE SUPPORT CLERK [address] [place] [address] PCP - General Advanced Practice Nurse 04/28/23 documented as of this encounter
--- OUTSIDE RECORDS SUMMARY | 2025-07-23 15:47 | XMS_ITS | Encounter Summary ---
Author Organization [facility] Address [address] [place] [address] Phone Care Team Providers Care Falsework Builder Name Role Phone Flo Rios Primary Care Provider U cruz Provider, None Primary Care Provider Annabelle Stearns APRN, ASSOCIATE COUNSEL Primary Care P rovider Reason for Visit * Reason Comments Medication Refill Encounter Details Date Type Department Care Team (Late st Contact Info) Description 04/09/2021 Refill [facility] - Primary Care - [id number] [place] [address] Flo Rios PAC Medication Refill [...] Dept 03/16/21 Office Visit Flo Rios PAC [facility] Showing recent visits within past 182 days and meeting all other requirements Future Appointments Date Type Provider Dept 04/15/21 Appointment Flo Rios PAC [facility] 05/19/21 Appointment Maximino Benitez [facility] Showing future appointments within next 90 days [...] Dept 03/16/21 Office Visit Flo Rios PAC [facility] Showing recent visits within past 365 days and meeting all other requirements Future Appointments Date Type Provider Dept 04/15/21 Appointment Flo [facility]ios PAC [facility] 05/19/21 Appointment Maximino Benitez [facility] Showing future appointments within next 90 [...] Respiratory Rule-Out 10/27/2023 10/27/2023 024 6:28 PM MANAGER STORAGE Respiratory Rule-Out 11/26/2023 11/26/2023 024 10:03 AM MANAGER STORAGE COVID - 19 11/26/2023 11/26/2023 11/26/2023 10:0 2 AM MANAGER STORAGE Influenza 11/26/2023 11/26/2023 12/03/2023 12:1 6 AM CDT Assessment Noted Time PHQ-9 Depression Total Score: 0 03/16/20 7:00 AM CDT documented as of this encounter Care Teams Falsework Builder Relationship Specialty Start Date End Date Flo Rios PAC PCP - General Physician Float Remover 03/16/21 06/30/22 Provider, None [place] PCP - General 07/01/22 04/27/23 Annabelle Robin, PALLET STONE POSITIONER, ASSOCIATE COUNSEL [address] [place] [address] PCP - General Advanced Practice Nurse 04/28/23 documented as of this encounter
--- OUTSIDE RECORDS SUMMARY | 2025-07-23 15:47 | XMS_ITS | Clinical Summary ---
Author Organization [facility] Address [address] [place] [address] Care Team Providers Care Ems Driver Name Role Phone No, Physician Primary Care Provider [phone] Allergies Active Allergy Reactions Criticality Noted Date [...] on file Legal Sex Female 1:30 PM CAMERA SYSTEMS ENGINEER Gender Identity Not on file Sexual Orientation [...] HEPATITIS C AB Routine 08/22/2014 6:30 AM CAMERA SYSTEMS ENGINEER from Last 3 Months or Most Recently Relevant to Health Maintenance Results * Serum Hepatitis C ab (08/22/2014 6:30 AM CAMERA SYSTEMS ENGINEER) HCV ab Negative Negative HISTORICAL RESULTS Serum 08/22/2014 6:30 AM CAMERA SYSTEMS ENGINEER Narrative HISTORICAL RESULTS - 08/22/2014 4:40 PM CAMERA SYSTEMS ENGINEER #[id number] [facility] DOA, Varicella IgG, and Obstetric Panel Latonya Ocasio MD LAB BLOOD ORDERABLE S Final Result HISTORICAL RESULTS from Last 3 Months or Most Recently Relevant to Health Maintenance Insurance [employer] ACCESS ANTHEM ACCESS Care Teams Ems Driver Relationship Specialty Start Date End Date No, Physician PCP - General 01/30/22
--- OUTSIDE RECORDS SUMMARY | 2025-07-23 15:47 | XMS_ITS | Encounter Summary ---
Author Organization [facility] Address [address] [place] [address] Phone Care Team Providers Care Dairy Equipment Mechanic Name Role Phone Flo Rios Primary Care Provider U cruz Provider, None Primary Care Provider Annabelle Stearns APRN, VALET ATTENDANT Primary Care P rovider Reason for Visit * Reason Comments Medication Refill Encounter Details Date Type Department Care Team (Late st Contact Info) Description 08/19/2021 Refill [facility] - Primary Care - [id number] [place] [address] Flo Rios, GIANCARLO Medication Refill [...] COVID-19? No / Unsure 08/03/2021 7:40 AM MUSIC COMPOSER documented as of this encounter Miscellaneous Notes * Telephone Encounter - Emily Tellez RN - 08/19/2021 12:13 PM CST The original prescription was discontinued on 08/03/2021 by Sandie Toledo, RN for the following reason: Dose adjustment C COMPOSER documented in this encounter Plan of Treatment Not on file documented as of this encounter Visit Diagnoses Diagnosis Hypothyroidism, unspecified type documented in this encounter Additional Health Concerns Infection Onset Date Last Indicated Resolved Time COVID - 19 11/23/2021 11/23/2021 12/13/2021 12:1 6 AM CDT Respiratory Rule-Out 10/27/2023 10/27/2023 024 6:28 PM MUSIC COMPOSER Respiratory Rule-Out 11/26/2023 11/26/2023 024 10:03 AM MUSIC COMPOSER COVID - 19 11/26/2023 11/26/2023 11/26/2023 10:0 2 AM MUSIC COMPOSER Influenza 11/26/2023 11/26/2023 12/03/2023 12:1 6 AM CDT Assessment Noted Time PHQ-9 Depression Total Score: 0 03/16/20 7:00 AM CDT documented as of this encounter Care Teams Dairy Equipment Mechanic Relationship Specialty Start Date End Date Flo Rios PAC PCP - General Physician Account Assistant 03/16/21 06/30/22 Provider, None [place] PCP - General 07/01/22 04/27/23 Annabelle Robin APRN, VALET ATTENDANT [address] [place] [address] PCP - General Advanced Practice Nurse 04/28/23 documented as of this encounter
--- NOTE | 2025-07-23 16:13 | PC.NURSE ---
pt left with mother, upset with wait time. mother. educated on inability to give wait time Decided to take pt elsewhere to have UTI evaluated
--- OUTSIDE RECORDS SUMMARY | 2025-07-23 16:56 | XMS_ITS | Clinical Summary ---
Author Organization [facility] Address [address] [place] [address] Care Team Providers Care Shoemaking Cutter Name Role Phone Unavailable Primary Care Provider [...]
--- OUTSIDE RECORDS SUMMARY | 2025-07-23 16:56 | XMS_ITS | Clinical Summary ---
Author Organization [facility] Address [address] [place] [address] Care Team Providers Care Retail Store Associate Name Role Phone No, Physician Primary Care Provider [phone] Allergies Active Allergy Reactions Criticality Noted Date [...] on file Legal Sex Female 1:30 PM TOOL AND DIE REPAIR Gender Identity Not on file Sexual Orientation [...] HEPATITIS C AB Routine 08/22/2014 6:30 AM TOOL AND DIE REPAIR from Last 3 Months or Most Recently Relevant to Health Maintenance Results * Serum Hepatitis C ab (08/22/2014 6:30 AM TOOL AND DIE REPAIR) HCV ab Negative Negative HISTORICAL RESULTS Serum 08/22/2014 6:30 AM TOOL AND DIE REPAIR Narrative HISTORICAL RESULTS - 08/22/2014 4:40 PM TOOL AND DIE REPAIR #[id number] [facility] DOA, Varicella IgG, and Obstetric Panel Latonya Ocasio MD LAB BLOOD ORDERABLE S Final Result HISTORICAL RESULTS from Last 3 Months or Most Recently Relevant to Health Maintenance Insurance [employer] ACCESS ANTHEM ACCESS Care Teams Retail Store Associate Relationship Specialty Start Date End Date No, Physician PCP - General 01/30/22
== END 2025-07-23 17:15 | disposition left against medical advice (07) ==
DX: R68.83 Chills (without fever) (principal)
CPT/HCPCS: 99199